=== PATIENT | female | born 1970 | race Caucasian/White ===

== ENCOUNTER 2019-05-16 01:33 | Day surgery (SDC) | payer BC, SELFPAY ==
[2019-05-12 14:46] VITALS: BMI 33.8
--- NOTE | 2019-05-14 14:56 | WPDANESEPP ---
Anes - Eval Pre Procedure Procedure: Operation Date: 05/16/19 09:00 Proposed Procedures p Esophagogastroduodenoscopy - Colin Canchola MD Date/Time: 05/14/19 14:56 Pre Op Diagnosis: Epigastric Pain Patient Data Age: 48 Gender: F Height: 5 ft 7 in Weight: 98 kg Allergies Allergy/AdvReac Type Severity Reaction Status Date / Time No Known Allergies Allergy Verified 05/12/19 14:44 Home Medications Medication Instructions Recorded Confirmed Type ibuprofen 200 mg PO Q6H PRN 05/12/19 05/12/19 History Patient hx anesthesia problems: none Family hx anesthesia problems: none PMFSH Past Medical History Medical History (Updated 05/14/19 @ 14:57 by Faviola Gonzalez CRNA) Epigastric pain Surgical History Surgical History (Updated 05/14/19 @ 14:56 by Faviola Gonzalez CRNA) H/O: hysterectomy Hx of cholecystectomy Hx of tonsillectomy Exam Day of Procedure 05/14/19 14:56
[2019-05-16 07:48] VITALS: BP 118/81; PULSE 76; RESP 16; TEMP 36.2; O2SAT 99
[2019-05-16] MEDS: LACTATED RINGERS 1,000 ML 150 ML IV CONT (07:55)
--- NOTE | 2019-05-16 08:47 | P.PNAN_ITS ---
Anes - Eval Final PreProcedure Day of Procedure 05/16/19 08:47 Patient weight: obese Heart: regular rate and rhythm Lungs: clear to auscultation Airway: Mallampati scale class II Neurological: alert and oriented Last oral intake: >/= 8 hours ASA classification: II Emergent: no Anesthetic plan: proceed Anesthesia type and monitoring: general GIVS and standard monitoring Informed Consent: The patient's anesthetic plan and its attendant risks and be nefits were discussed with the patient/family/POA. Questions were solicited and answers provided to the satisfaction of the patient/family/POA.
--- NOTE | 2019-05-16 09:12 | WPDGICN ---
Assessment and Plan Additional Plan This is a 48-year-old white female patient seen in evaluation at the request of Dr. Osmin Crockett. Patient states that in February 2019 she began to have upper abdominal pain. Pain is more in the left upper quadrant. She feels a bloating firm sensation in this area. Pain will worsen as the day progresses. It becomes worse on eating just about all foods. It is worse when sleeping . she states that her bowel habits are unchanged. She denies any bleeding. She denies any fever. She denies any weight loss. Past medical history is significant for cholecystectomy in 2017. She is status post total abdominal hysterectomy. Medications: Currently on no medications. She has no stated drug allergies. Family history noncontributory. Physical exam reveals her to be alert. Vital signs stable. HEENT exam unremarkable. Lungs are clear to auscultation and percussion. Heart is without murmur or extra sounds. Abdominal exam is obese. Bowel sounds are present soft she notices mild discomfort left upper quadrant. Digital external rectal exam normal. Laboratory tests reveal ultrasound April 20, 2019 consistent with hepatic steatosis. LFTs are normal. Hepatitis serologies are negative. Impression 1. epigastric pain. Etiology unclear. Pain appears to worsen with dietary intake. Suggesting dyspepsia. Plan is for a trial of proton pump inhibitor such as Prilosec. An EGD will be performed. \2. Hepatic steatosis. Appears to be related to obesity. Low-fat diet. Increase exercise, is encouraged. GI Consult Note Consult date/time: 05/16/19 09:12 HPI: Alexandra Ludwig Mensing is a 48 year old female [facility] Past Medical History Medical History (Updated 05/14/19 @ 14:57 by Faviola Gonzalez CRNA) Epigastric pain Surgical History Surgical History (Updated 05/14/19 @ 14:56 by Faviola Gonzalez CRNA) H/O: hysterectomy Hx of cholecystectomy Hx of tonsillectomy Meds Home Medications and Allergies Home Medications Medication Instructions Recorded Confirmed Type ibuprofen 200 mg PO Q6H PRN 05/12/19 05/12/19 History Allergies Allergy/AdvReac Type Severity Reaction Status Date / Time No Known Allergies Allergy Verified 05/12/19 14:44 Vital Signs Vital Signs - 24 hr 05/16/19 07:48 Temperature 36.2 C L Pulse Rate 76 Respiratory Rate 16 Blood Pressure 118/81 Pulse Oximetry 99
[2019-05-16] MEDS: BENZOCAINE (*SP) 60 ML SPRAY CAN (HURRICAINE) 1 SPRAY MUCOUS MEM (09:27)
[2019-05-16 09:35] VITALS: BP 115/82; PULSE 80; RESP 14; O2SAT 99
[2019-05-16 09:45] VITALS: BP 112/74; PULSE 62; RESP 15; O2SAT 100
[2019-05-16 09:55] VITALS: BP 128/80; PULSE 64; RESP 15; O2SAT 99
[2019-05-16 10:05] VITALS: BP 122/81; PULSE 63; RESP 18; O2SAT 100
== END 2019-05-16 10:20 | disposition home or self-care (01) ==
PROVIDERS: PCP Family Medicine; Visit Provider Internal Medicine Gastroenterology
PROC: 0DJ08ZZ Inspection of Upper Intestinal Tract, Via Natural or Artificial Opening Endoscopic (ICD-10-PCS; CPT 43235; principal; 2019-05-16 09:00)
DX: R10.13 Epigastric pain (principal); R10.12 Left upper quadrant pain; K76.0 Fatty (change of) liver, not elsewhere classified; E66.9 Obesity, unspecified; Z68.34 Body mass index [BMI] 34.0-34.9, adult
CPT/HCPCS: 43239; 87081; J2704; J7120

== ENCOUNTER → 2021-05-07 03:16 | Outpatient (CLI) | payer BC, SELFPAY ==
[2021-05-07 19:06] LABS: SARS-CoV-2 RNA PCR Positive
== END ==
PROVIDERS: PCP Family Medicine; Visit Provider Internal Medicine Gastroenterology
DX: U07.1 COVID-19 (principal); Z01.812 Encounter for preprocedural laboratory examination
CPT/HCPCS: C9803; U0003; U0005

== ENCOUNTER 2021-05-10 02:12 | Day surgery (SDC) | payer BC, SELFPAY ==
[2021-04-29 15:52] VITALS: BMI 37.3
--- NOTE | 2021-05-09 16:06 | P.PNAN_ITS ---
Anes - Eval Pre Procedure Procedure: Operation Date: 05/10/21 09:00 Proposed Procedures p Screening Colonoscopy - Colin Canchola MD Date/Time: 05/09/21 16:06 Pre Op Diagnosis: neoplasm screening Patient Data Age: 50 Gender: F Height: 1.68 m Weight: 105 kg Allergies Allergy/AdvReac Type Severity Reaction Status Date / Time No Known Allergies Allergy Verified 04/29/21 15:50 Home Medications Medication Instructions Recorded Confirmed Type ibuprofen 200 mg PO Q6H PRN 05/12/19 04/29/21 History pantoprazole 40 mg PO DAILY 04/29/21 04/29/21 History sucralfate 1 g PO QID 04/29/21 04/29/21 History Patient hx anesthesia problems: none Family hx anesthesia problems: none Results Review: All pre-operative results and documents have been reviewed as part of the pre-operative evaluation. [facility] Past Medical History Medical History (Updated 05/09/21 @ 16:06 by Britney Nelson CRNA) Epigastric pain Migraine Surgical History Surgical History H/O: hysterectomy Hx of cholecystectomy Hx of tonsillectomy Social History Social History Smoking status: Never smoker Alcohol intake: never Substance use: never Substance use type: does not use Spiritual care concerns: No Exam Day of Procedure 05/09/21 16:06
[2021-05-10 11:32] VITALS: BP 129/71; PULSE 82; RESP 16; TEMP 36.6; O2SAT 100
[2021-05-10 11:33] VITALS: BMI 37.1
[2021-05-10] MEDS: LACTATED RINGERS 1,000 ML 150 ML IV CONT (11:36)
--- NOTE | 2021-05-10 11:50 | WPDGICN ---
Assessment and Plan Assessment and plan (1) Encounter for screening colonoscopy: Code(s): Z12.11 - Encounter for screening for malignant neoplasm of colon Status: Acute Assessment and Plan: pt presents for neoplasia screening . she appears to be at average risk for colon polyps, further recomendations will be given after endoscopy. (2) Bloating: Code(s): R14.0 - Abdominal distension (gaseous) Status: Acute Assessment and Plan: nonspecific complaint, unremarkable EGD 2 years ago, will consider this at time of colonoscopy , consider US of RUQ if not yet obtained GI Consult Note Consult date/time: 05/10/21 11:50 HPI: Alexandra Ludwig Mensing is a 50 year old female presents for neoplasia screening. Pt reports abdominal bloating for several years, not related to eating nor with BM. There is no change with antacids, nor gas-x. her family hx is noncontributary, weight , appetite and bowel movements are normal. no bleeding, reported. Review of Systems Review of Systems: All systems reviewed & are unremarkable except as noted in HPI and below PMFSH Past Medical History Medical History (Updated 05/10/21 @ 11:54 by Colin Canchola MD) Epigastric pain Migraine Surgical History Surgical History H/O: hysterectomy Hx of cholecystectomy Hx of tonsillectomy Social History Social History Smoking status: Never smoker Alcohol intake: never Substance use: never Substance use type: does not use Living arrangements: with family Spiritual care concerns: No Meds Home Medications and Allergies Home Medications Medication Instructions Recorded Confirmed Type ibuprofen 200 mg PO Q6H PRN 05/12/19 04/29/21 History pantoprazole 40 mg PO DAILY 04/29/21 04/29/21 History sucralfate 1 g PO QID 04/29/21 04/29/21 History Allergies Allergy/AdvReac Type Severity Reaction Status Date / Time No Known Allergies Allergy Verified 04/29/21 15:50 Vital Signs Vital Signs - 24 hr 05/10/21 11:32 Temperature 97.8 F Pulse Rate 82 Respiratory Rate 16 Blood Pressure 129/71 Pulse Oximetry 100 Exam Narrative: On physical exam pt is alert, VSS, HEENT exam unremarkable, she is anicteric, lungs are clear, heart without murmur, Abdomen BS are present, soft, scaphoid, nontender, extremites without clubbing, cyanosis, nor edema, Digital rectal exam is normal.
[2021-05-10] MEDS: SIMETHICONE ORAL SUSPENSION 20 MG/0.3 ML 30 ML BOTTLE 0.6 ML IRRIGATION (12:16)
[2021-05-10 12:25] VITALS: BP 103/64; PULSE 80; RESP 16; O2SAT 100
[2021-05-10 12:35] VITALS: BP 119/79; PULSE 75; RESP 13; O2SAT 100
[2021-05-10 12:45] VITALS: BP 122/82; PULSE 76; RESP 17; O2SAT 100
== END 2021-05-10 12:54 | disposition home or self-care (01) ==
PROVIDERS: PCP Family Medicine; Visit Provider Internal Medicine Gastroenterology
PROC: 0DJD8ZZ Inspection of Lower Intestinal Tract, Via Natural or Artificial Opening Endoscopic (ICD-10-PCS; CPT 45378; principal; 2021-05-10 09:00)
DX: Z12.11 Encounter for screening for malignant neoplasm of colon (principal); R14.0 Abdominal distension (gaseous)
CPT/HCPCS: 45378; J2704; J7120

== ENCOUNTER 2022-05-09 17:12 | Emergency (ER) | payer BC, SELFPAY ==
--- NOTE | ~2022-05-09 | XR_ITS ---
EXAMINATION: XR chest 2V DATE: 05/09/2022 18:08 INDICATION: Chest pain. TECHNIQUE: Frontal and lateral views of the chest were obtained. COMPARISON: None. FINDINGS: There is mild atelectasis at left lung base. No pleural effusion or pneumothorax. The heart size is normal. Surgical clips in the right upper quadrant are likely from cholecystectomy. IMPRESSION: 1. Mild atelectasis at left lung base. Reviewed, dictated and finalized at location A. ENTER'S ASSISTANT
--- NOTE | ~2022-05-09 | CT_ITS ---
EXAMINATION: CTA chest PE protocol DATE: 05/09/2022 18:49 INDICATION: Shortness of breath. Chest pain. TECHNIQUE: Computed tomography angiography (CTA) of the chest was performed with 100 mL Omnipaque-350 intravenous contrast timed to evaluate the pulmonary arteries. Coronal maximum intensity projection 3D-reconstructions were created by the technologist. Automated exposure control and iterative reconst ruction technique were employed. The dose-length product was 655.80 mGy-cm. COMPARISON: None. FINDINGS: There is mild atelectasis bilaterally. No pleural effusion. The heart size is normal. No pe ricardial effusion. There is no pulmonary embolus. There are changes of cholecystectomy. There is a s mall sliding hiatal hernia. There is moderate thoracic spondylosis. IMPRESSION: 1. No pulmonary embolus. Sensitivity is mildly decreased by motion artifact. Reviewed, dictated and finalized at location A. N OILSEED OR PASTURE FARM WORKER
--- NOTE | 2022-05-09 17:13 | ECG_ITS ---
Measurements Intervals [place] Rate: 119 P: 11 CA: 158 QRS: 9 QRSD: 67 T: 25 QT: 287 QTc: 405 Interpretive Statements SINUS TACHYCARDIA LOW QRS VOLTAGE IN PRECORDIAL LEADS [QRS DEFLECTION < 1.0 mV IN CHEST LEADS] ABNORMAL ECG NO PREVIOUS ECG AVAILABLE FOR COMPARISON Electronically Signed On 05-10-2022 12:46:04 HVAC OPERATIONS TECHNICIAN by Faustino Marsh M.D.
[2022-05-09 17:15] VITALS: BP 122/83; PULSE 122; RESP 22; TEMP 38.1; O2SAT 99
[2022-05-09 17:32] LABS: Basophils Percent Auto 0.3 % (0.2-1.2); Eosinophils Percent Auto 0.2 % (0-4.4); Hematocrit 42.5 % (37.0-47.0); Hemoglobin 13.9 g/dL (12.0-15.0); Immature Granulocyte Absolute 0.02 K/mm3 (0.00-0.031); Immature Granulocyte Percent A 0.2 % (0-0.5); Lymphocytes Absolute Auto 1.05 K/mm3 (0.9-3.2); Lymphocytes Percent Auto 10.5 % (18.3-44.2); Mean Corpuscular HGB Conc 32.7 g/dl (32-36); Mean Corpuscular Hemoglobin 28.5 pg (26-34); Mean Corpuscular Volume 87.3 fl (80-100); Mean Platelet Volume 7.9 fl (7.4-10.4); Monocytes Absolute Auto 0.3 K/mm3 (0.1-0.6); Monocytes Percent Auto 3.4 % (2.6-8.5); Neutrophils Absolute Auto 8.5 K/mm3 (1.3-6.7); Neutrophils Percent Auto 85.4 % (45.5-73.1); Platelet Count Result 249 k/mm3 (150-375); Red Blood Count 4.87 M/mm3 (4.2-5.4); Red Cell Distribution Width 13.4 % (11.5-14.5)
[2022-05-09 17:49] LABS: Alanine Aminotransferase 30 U/L (6-35); Albumin Level 4.4 g/dL (3.5-5.1); Alkaline Phosphatase 161 U/L (38-126); Anion Gap 4 mmol/L (8-16); Aspartate Amino Transferase 30 U/L (14-36); Bilirubin,Total 0.5 mg/dL (0.2-1.3); Blood Urea Nitrogen 22 mg/dL (7-17); Carbon Dioxide 30 mmol/L (22-30); Chloride 104 mmol/L (98-107); Estimated CRCL calculation 77 ml/min; Estimated Glomerular Filt Rate > 60; Glucose 103 mg/dL (65-110); Lipase 80 U/L (23-300); Partial Thromboplastin Time 29.6 SECONDS (22.3-36.8); Potassium 4.4 mmol/L (3.4-5.0); Sodium 138 mmol/L (137-145)
--- NOTE | 2022-05-09 17:58 | ED.CHESTPAIN ---
HPI - Chest Pain General Chief Complaint: Chest Pain Stated Complaint: cp, fever/chills Time Seen by Provider: 05/09/22 17:43 History of Present Illness HPI narrative: Pt presents with intermittent chest pain and SOB off and on since March. Pt has been seen at [facility] ER and worked up and released. Pt has seen a certifier and has been scheduled for a stress test and echo. Pt says that she developed anterior CP radiating to jaw and arms and around to back since 11am today. Pt says she spiked a fever earlier today but denies URI, cough urinary symptoms. Related Data Home Medications Medication Instructions Recorded Confirmed ibuprofen 200 mg capsule 200 mg PO Q6H PRN Pain 05/12/19 04/29/21 pantoprazole 40 mg tablet,delayed 40 mg PO DAILY 04/29/21 04/29/21 release sucralfate 1 gram tablet 1 g PO QID 04/29/21 04/29/21 Allergies Allergy/AdvReac Type Severity Reaction Status Date / Time No Known Allergies Allergy Verified 04/29/21 15:50 Review of Systems Review of Systems: All systems reviewed & are unremarkable except as noted in HPI and below PMFSH Past Medical History Medical History (Updated 05/09/22 @ 19:23 by Vito Soto III, DO) Epigastric pain Migraine Surgical History Surgical History H/O: hysterectomy Hx of cholecystectomy Hx of tonsillectomy Social History Social History Smoking status: Never smoker Alcohol intake: never Substance use: never Substance use type: does not use Living arrangements: with family Spiritual care concerns: No Exam Const: General: healthy appearing Nutritional Appearance: well nourished Orientation/consciousness: patient oriented x3 Limitations: no limitations Neck: Neck: normal visual inspection Chest: Chest palpation & inspection: tenderness Other: tender upper chest to palpation and between shoulder blades Resp: Effort & Inspection: normal respiratory effort Auscultation: clear to auscultation bilaterally Cardio: Rate: regular rate Rhythm: regular rhythm GI: GI Palp: Yes Soft to palpation Auscultation: normal bowel sounds Skin: General skin exam: normal color Rashes: no rashes Wounds: no wounds Neuro: General: patient oriented x3, moves all extremities, no meningeal signs, no focal motor deficits and CN's II-XI intact bilaterally Cranial nerves: Yes Nystagmus not present Speech: normal speech Extrem: General: normal to inspection and no clubbing, cyanosis or edema Psych: Mental Status: mental status grossly normal Affect: normal affect Attitude: cooperative Course Vital Signs Vital signs: Vital Signs Temperature 100.6 F H 05/09/22 17:15 Pulse Rate 122 H 05/09/22 17:15 Respiratory Rate 22 H 05/09/22 17:15 Blood Pressure 122/83 05/09/22 17:15 Pulse Oximetry 99 05/09/22 17:15 Temperature 100.6 F H 05/09/22 17:15 Pulse Rate 100 05/09/22 20:27 Respiratory Rate 20 05/09/22 20:27 Blood Pressure 115/82 05/09/22 20:27 Pulse Oximetry 97 05/09/22 20:27 MDM - Chest Pain MDM Narrative Medical decision making narrative: Pt has had intermittent CP for a couple of months. Pt has had cardiac eval all neg so far. Pt has not had any treatment for any musculoskeltal type pain. Eplained to and pt that ths was not likely cardaic but would check labs and ekg to be safe and get CT of chest to make sure it want a PE or anything in her lungs but if all this was negative than would have to follow up with PCP to do testing to find a cause of her pain. labs and CT neg here and felt better after fentany. d/c on naprosy and flexeril for outpatient follow up. Lab Data 05/09/22 17:27 05/09/22 17:27 Labs: Lab Results 05/09/22 05/09/22 05/09/22 Range/Units 17:27 17:27 17:27 WBC 10.0 (4.5-10.0) K/mm3 RBC 4.87 (4.2-5.4) M/mm3 Hgb 13.9 (12.0-15.0) g/dL Hct 42.5 (37.0-47.0) %
[2022-05-09 18:00] LABS: Troponin I < 0.012 ng/mL (0.000-0.034)
[2022-05-09] MEDS: fentaNYL CITRATE INJ (*CRX) 100 MCG/2 ML VIAL 50 MCG IV PUSH (19:05)
[2022-05-09 20:27] VITALS: BP 115/82; PULSE 100; RESP 20; O2SAT 97
== END 2022-05-09 20:27 | disposition home or self-care (01) ==
PROVIDERS: Emergency Provider Emergency Medicine; PCP Family Medicine
DX: R07.89 Other chest pain (principal); Z90.710 Acquired absence of both cervix and uterus; R00.0 Tachycardia, unspecified
CPT/HCPCS: 36415; 71046; 71275; 80053; 83690; 84484; 85025; 85610; 85730; 93005; 96374; 99284; J3010; Q9967

== ENCOUNTER 2023-02-16 11:42 | Outpatient (CLI) | payer BC, SELFPAY ==
--- NOTE | ~2023-02-16 | XR_ITS ---
Supine and upright views of the abdomen Clinical history: Abdominal distention Findings: Bowel gas pattern is nonspecific. No evidence for obstruction or free air. No abnormal mass lesion or calcification is seen. Cholecystectomy clips noted. Osseous structures are intact. Impression: No significant abnormality is seen. Reviewed, dictated and finalized at [facility]. ING DEPARTMENT SUPERVISOR Impression: No significant abnormality is seen.
[2023-02-16 12:35] LABS: Hematocrit 44.1 % (37.0-47.0); Hemoglobin 13.9 g/dL (12.0-15.0); Mean Corpuscular HGB Conc 31.5 g/dl (32-36); Mean Corpuscular Hemoglobin 28.1 pg (26-34); Mean Corpuscular Volume 89.1 fl (80-100); Mean Platelet Volume 8.4 fl (7.4-10.4); Platelet Count Result 292 k/mm3 (150-375); Red Blood Count 4.95 M/mm3 (4.2-5.4); Red Cell Distribution Width 13.2 % (11.5-14.5); White Blood Count 7.1 K/mm3 (4.5-10.0)
[2023-02-16 12:49] LABS: Alanine Aminotransferase 34 U/L (6-35); Albumin Level 4.6 g/dL (3.5-5.1); Alkaline Phosphatase 116 U/L (38-126); Anion Gap 12 mmol/L (8-16); Aspartate Amino Transferase 28 U/L (14-36); Bilirubin,Total 0.6 mg/dL (0.2-1.3); Blood Urea Nitrogen 24 mg/dL (7-17); CRP 1.1 mg/dL (<1.0); Calcium 9.8 mg/dL (8.4-10.2); Carbon Dioxide 28 mmol/L (22-30); Chloride 101 mmol/L (98-107); Estimated Glomerular Filt Rate > 60; Glucose 83 mg/dL (65-110); Potassium 4.5 mmol/L (3.4-5.0); Sodium 141 mmol/L (137-145)
[2023-02-16 13:08] LABS: Erythrocyte Sedimentation Rate 13 mm/hr (0-20)
[2023-02-16 13:20] LABS: Thyroid Stimulating Hormone Reflex 0.018 uIU/mL (0.465-4.68)
[2023-02-16 14:12] LABS: Free T4 Free Thyroxine Reflex 0.85 ng/dL (0.78-2.19)
[2023-02-16 16:17] LABS: Total Triiodothyronine (T3) 1.55 NG/ML (0.97-1.69)
[2023-02-19 20:23] LABS: Immunoglobulin A 142 mg/dL (47-310); TTG IGA AB <1.0 U/mL (<15.0)
== END 2023-02-16 11:43 | disposition home or self-care (01) ==
LOC: ANHLAB 11:44
PROVIDERS: PCP Family Medicine; Visit Provider Nurse Practitioner
DX: R14.0 Abdominal distension (gaseous) (principal); R68.81 Early satiety; R14.2 Eructation
CPT/HCPCS: 36415; 74018; 80053; 82784; 84439; 84443; 84480; 85027; 85652; 86003; 86140; 86364

== ENCOUNTER 2023-03-10 07:14 | Outpatient (CLI) | payer BC, SELFPAY ==
--- NOTE | ~2023-03-10 | NM_ITS ---
EXAM: NM gastric emptying study DATE: 03/10/2023 11:49 INDICATION: Early satiety TECHNIQUE: A gastric emptying study was performed using the methodology of Marjorie IRENE, et al. J Nucl Med 2007; 48:568-572. The patient was given a meal consisting of 2 scrambled eggs labeled with 1.049 mCi Tc-99m sulfur colloid, 2 slices of toast, two packages of jam, and approximately 120 mL of water . Simultaneous anterior and posterior 1-min images of the abdomen were obtained with the patient supi ne at multiple time points over a total period of 4 hours. The geometric mean of anterior and posteri or views was determined, and the percentage retention was calculated for each time point. COMPARISON: None. FINDINGS: Gastric retention of the radiotracer-labeled meal was 45%, 19%, and 4% at the 1-hour, 2-hour, and 4-h our time points, respectively. With this technique, apparent rapid gastric emptying is suggested by < 30% gastric retention at 1 hour. Delayed gastric emptying is defined by gastric retention of >90% at 1 hour, >60% retention at 2 hours, or >10% retention at 4 hours. IMPRESSION: 1. Normal gastric emptying. Reviewed, dictated and finalized at location A. ODITIES CLERK IMPRESSION: 1. Normal gastric emptying.
== END 2023-03-10 07:15 | disposition home or self-care (01) ==
PROVIDERS: PCP Family Medicine; Visit Provider Nurse Practitioner
DX: R14.0 Abdominal distension (gaseous) (principal); R68.81 Early satiety
CPT/HCPCS: 78264; A9541

== ENCOUNTER 2023-03-20 09:13 | Outpatient (CLI) | payer BC, SELFPAY ==
[2023-03-20 09:24] LABS: Basophils Absolute Auto 0.03 K/mm3 (0.00-0.10); Basophils Percent Auto 0.6 % (0.0-1.0); Eosinophils Absolute Auto 0.09 K/mm3 (0.02-0.50); Eosinophils Percent Auto 1.7 % (1.0-6.0); Hematocrit 43.9 % (35.0-49.0); Hemoglobin 14.1 g/dL (12.0-15.0); Immature Granulocyte Absolute 0.01 K/mm3 (0.00-0.00); Immature Granulocyte Percent A 0.2 % (0.0-0.0); Lymphocytes Absolute Auto 1.88 K/mm3 (1.10-4.50); Lymphocytes Percent Auto 35.3 % (18.0-42.0); Mean Corpuscular HGB Conc 32.1 g/dL (32.0-36.0); Mean Corpuscular Hemoglobin 28.2 pg (27.0-31.0); Mean Corpuscular Volume 87.8 fL (78.0-102.0); Mean Platelet Volume 8.3 fl (9.2-11.8); Monocytes Absolute Auto 0.29 K/mm3 (0.10-0.90); Monocytes Percent Auto 5.4 % (2.0-11.0); Neutrophils Percent Auto 56.8 % (50.0-70.0); Platelet Count Result 287 K/mm3 (150-420); Red Cell Distribution Width 13.2 % (11.6-14.4); White Blood Count 5.3 K/mm3 (4.8-10.8)
[2023-03-20 09:47] LABS: Alanine Aminotransferase 42 U/L (14-59); Albumin Level 4.1 g/dL (3.4-5.0); Alkaline Phosphatase 144 U/L (46-116); Anion Gap 6 mmol/L (8-16); Aspartate Amino Transferase 23 U/L (15-37); Bilirubin,Total 0.5 mg/dL (0.00-1.00); Blood Urea Nitrogen 21 mg/dL (7-18); Calcium 9.6 mg/dL (8.5-10.1); Carbon Dioxide 32 mmol/L (21-32); Chloride 101 mmol/L (98-108); Cholesterol 197 mg/dL (0-200); Estimated Glomerular Filt Rate 50; Glucose 92 mg/dL (70-99); HDL Direct 53 mg/dL (40-60); LDL Cholesterol Calculated 113 mg/dL (<130); Osmolality Calculated 291 mOsm/kg (285-295); Potassium 4.6 mmol/L (3.5-5.1); Sodium 139 mmol/L (136-145); Total Protein 7.6 g/dL (6.4-8.2); Triglycerides 157 mg/dL (0-150)
[2023-03-21 07:40] LABS: Thyroid Stimulating Hormone Reflex 0.67 u/IU/mL (0.36-3.74)
== END 2023-03-20 09:14 | disposition home or self-care (01) ==
LOC: CHSLAB 09:15
PROVIDERS: PCP Family Medicine; Visit Provider Family Medicine
DX: Z00.00 Encounter for general adult medical examination without abnormal findings (principal)
CPT/HCPCS: 36415; 80053; 80061; 84443; 85025

== ENCOUNTER 2023-05-22 11:32 | Outpatient (CLI) | payer BC, SELFPAY ==
--- NOTE | ~2023-05-22 | MM_ITS ---
EXAMINATION: MM screening marilee BI w gaby HISTORY: Screening mammogram TECHNIQUE: Craniocaudal and mediolateral oblique 3-D tomosynthesis images were obtained and synthetic 2-D images were generated. CAD analysis was submitted and interpreted. COMPARISON: No prior mammogram is available for comparison at this institution. BREAST PARENCHYMAL COMPOSITION: The breasts are almost entirely fatty. FINDINGS: No suspicious mass, calcification, or architectural distortion are identified in either mike ast to suggest malignancy. IMPRESSION: 1. No mammographic evidence of malignancy. 2. Recommend routine screening mammography in one year. BI-RADS Category 1: Negative Reviewed, dictated and finalized at location A. E FINISHER
== END 2023-05-22 11:33 | disposition home or self-care (01) ==
LOC: CHSIMG 11:34
PROVIDERS: PCP Family Medicine; Visit Provider Family Medicine
DX: Z12.31 Encounter for screening mammogram for malignant neoplasm of breast (principal)
CPT/HCPCS: 77063; 77067

== ENCOUNTER 2023-06-03 09:13 | Outpatient (CLI) | payer BC, SELFPAY ==
--- NOTE | ~2023-06-03 | XR_ITS ---
EXAMINATION: XR chest 2V DATE: 06/03/2023 09:53 INDICATION: 3 days of cough and fatigue TECHNIQUE: PA and lateral views of the chest were obtained. COMPARISON: Chest radiograph and CT dated 05/09/2022 FINDINGS: The lungs remain clear with no focal airspace opacities, pulmonary edema, pleural effusion or pneumot horax. The cardiomediastinal silhouette is normal. Post cystectomy clips in right upper quadrant. Mod erate thoracic spondylosis IMPRESSION: 1. No acute cardiopulmonary disease. Reviewed, dictated and finalized at location B. OFFICER ASSISTANT
[2023-06-03 09:52] LABS: Strep Group A RT-PCR DETECTED (Negative)
[2023-06-03 10:03] LABS: SARS-CoV-2 RNA PCR Negative (Negative)
[2023-06-03 10:04] LABS: Influenza B QL RT-PCR Negative (Negative)
[2023-06-03 10:05] LABS: Influenza A QL RT-PCR Negative (Negative); RSV RNA, RT-PCR Negative (Negative)
== END 2023-06-03 09:14 | disposition home or self-care (01) ==
PROVIDERS: PCP Family Medicine; Visit Provider Family Medicine
DX: R05.9 Cough, unspecified (principal); Z20.822 Contact with and (suspected) exposure to COVID-19
CPT/HCPCS: 71046; 87637; 87651

== ENCOUNTER 2024-08-12 00:34 | Day surgery (SDC) | payer BC, SELFPAY ==
[2024-08-03 14:28] VITALS: BMI 33.0
--- OUTSIDE RECORDS SUMMARY | 2024-08-12 00:37 | XMS_ITS | Encounter Summary ---
Author Organization [facility] Care Team Providers Care Deputy Commonwealth'S Attorney Name Role Phone Osmin Crockett MD Primary Care Provider [phone] Osmar Galeano Primary Care Provider [phone] Encounter Details Date Type Department Care Team (Latest Contact Info) Description 09/12/2016 Orders Only [facility] CLINCONV ProviderDemario MD [address] [place] [id number] Social History Tobacco Use Types Packs/Day Years Used Date Smoking Tobacco: Never Assessed Comments Unknown Sex and Gender Information Value Date Recorded Sex Assigned at Not on file Legal Sex 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 Historical Provider Final Res ult * PROCEDURE - RESULT (09/24/2016 12:00 AM CDT) Narrative 09/24/2016 12:00 AM CDT Ordered by an unspecified provider. us Historical Provider Final Res ult documented in this encounter Visit Diagnoses Not on filedocumented in this encounter Care Teams Deputy Commonwealth'S Attorney Relationship Specialty Start Date End Date Osmin Crockett MD PCP - General Family Medicine 08/11/18 12/31/21 Osmar Galeano PA PCP - General Family Medicine 01/01/22 documented as of this encounter
--- OUTSIDE RECORDS SUMMARY | 2024-08-12 00:37 | XMS_ITS | Encounter Summary ---
Author Organization [facility] Facility Care Team Providers Care Pull Over Name Role Phone Osmin Crockett MD Primary Care Provider [phone] Osmar Galeano Primary Care Provider [phone] Encounter Details Date Type Department Care Team (Latest Contact Info) Description 08/21/2016 Orders Only [facility]G CLINCONV ProviderDemario MD [address] [place] [id number] Social History Tobacco Use Types Packs/Day Years Used Date Smoking Tobacco: Never Assessed Comments Unknown Sex and Gender Information Value Date Recorded Sex Assigned at Not on file Legal 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 Historical Provider Final Res ult documented in this encounter Visit Diagnoses Not on filedocumented in this encounter Care Teams Pull Over Relationship Specialty Start Date End Date Osmin Crockett MD PCP - General Family Medicine 08/11/18 12/31/21 Osmar Galeano PA PCP - General Family Medicine 01/01/22 documented as of this encounter
--- OUTSIDE RECORDS SUMMARY | 2024-08-12 00:37 | XMS_ITS | Clinical Summary ---
Author Organization [facility] Address [address] [place] [address] Care Team Providers Care Telemetry Monitor Name Role Phone Unavailable Primary Care Provider Unavailabl e Social History Tobacco Use Types Packs/Day Years Used Date Smoking Tobacco: Never Assessed Comments Unknown Sex and Gender Information Value Date Recorded Sex Assigned at Not on file Legal Sex Female 10:43 AM CDT Gender Identity Not on file Sexual Orientation Not on file Plan of Treatment Health Maintenance Due Date Last Done Comments Hepatitis C Virus (HCV) Screening 1969 Hepatitis B Immunization (1 of 3 - 19+ 3-dose series) 1988 Pap Smear 1990 Cervical Cancer Screening (CCS) 11/29/1999 HPV/Cotest 11/29/1999 Colonoscopy 2014 Colorectal Cancer Screening 2014 Cologuard 11/29/2019 Immunochemical Fecal Occult Blood 11/29/2019 Mammogram 11/29/2019 Pneumococcal Immunization (5 0+ years) (1 of 1 - PCV) 11/29/2019 Zoster Immunization (1 of 2) 11/29/2019 Influenza Immunization (#1) 2023 02/22/2019 SARS-COV-2 Immunization ( - 2023- season) 2023 Respiratory Syncytial Virus (RSV) Immunization (Adult) (1 - 1-dose 75+ series) 2044 DTaP/Tdap/Td Immunization Discontinued 07/11/2016 TdaP Immunization Completed 07/11/2016 Meningococcal Immunization (ACWY) Aged Out No longer eligible based on patient's age to complete this topic Pneumococcal Immunization Combined Aged Out No longer eligible based on patient's age to complete this topic Rotavirus Immunization Aged Out No lo nger eligible based on patient's age to complete this topic
--- OUTSIDE RECORDS SUMMARY | 2024-08-12 00:37 | XMS_ITS | Encounter Summary ---
Author Organization 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 Historical Provider Final Res ult documented in this encounter Visit Diagnoses Not on filedocumented in this encounter Care Teams Quality Process Auditor Relationship Specialty Start Date End Date Osmin Crockett MD PCP - General Family Medicine 08/11/18 12/31/21 Osmar Galeano PA PCP - General Family Medicine 01/01/22 documented as of this encounter
--- OUTSIDE RECORDS SUMMARY | 2024-08-12 00:37 | XMS_ITS | Referral Summary ---
Author Organization [facility] [place] [facility] [facility] Address [address] [place] [address] Care Team Providers Care Chemical Inspector Name Role Phone Osmar Galeano Primary Care Provider [phone] Encounters Date Type Department Care Team Description 06/19/2024 4:31 PM CDT - 06/19/2024 8:01 PM CDT Emergency [facility] Emergency Department [address] [place] [address] Silvia Painter MD Chronic abdominal pain (Primary Dx) Discharge Disposition: Discharge to home or self care from Last 3 Months Allergies No known active allergies Medications fluticasone propionate (FLONASE) 50 mcg/actuation nasal spray SHAKE LQ AND U 2 SPRAYS IEN QD PRN 0 9 Active IBU 800 mg tablet Take 1 tablet by mouth 3 (three) times a day 0 9 Active carisoprodol (SOMA) 350 mg tabletIndication s:Muscle Spasm Take 1 tablet (350 mg total) by mouth nightly 14 tablet 9 Active Additional Information Patient not taking.Reported on 07/28/2019 HYDROcodone-acet aminophen (NORCO) 5-325 mg per tablet TK 1 T PO Q 6 H PRN P 0 9 Active dicyclomine (BENTYL) 10 mg capsuleIndicatio ns:Diarrhea, unspecified type Take 2 capsules (20 mg total) by mouth 2 (two) times a day as needed (abdominal pain or cramps) 15 capsule 9 Active Additional Information Patient not taking.Reported on 07/28/2019 Saccharomyces boulardii (FLORASTOR) 250 mg capsuleIndicatio ns:Acute gastritis without hemorrhage, unspecified gastritis type Take 1 capsule (250 mg total) by mouth 2 (two) times a day 60 capsule 1 0 Active Additional Information Patient not taking.Reported on 07/28/2019 ALPRAZolam (XANAX) 0.5 mg tabletIndication s:Anxiety Take 1 tablet (0.5 mg total) by mouth 2 (two) times a day as needed for anxiety 30 tablet 0 Active Additional Information Patient not taking.Reported on 2019 SUMAtriptan (IMITREX) 100 mg tablet Take 1 tablet (100 mg total) by mouth once as needed for migraine for up to 1 dose 9 tablet 1 Active sucralfate (CARAFATE) 1 gram tabletIndication s:Gastroesophage al reflux disease without esophagitis Take 1 tablet (1 g total) by mouth 4 (four) times a day (with meals and nightly) 120 [address] (PROTONIX) 40 mg EC tabletIndication s:Gastroesophage al reflux disease without esophagitis Take 1 tablet (40 mg total) by mouth daily 30 tablet 1 2 Active albuterol HFA (PROVENTIL HFA,VENTOLIN HFA,PROAIR HFA) 90 mcg/actuation inhalerIndicatio ns:Wheezing Inhale 2 puffs every 6 (six) hours as needed for wheezing 1 each 2 Active Active Problems Problem Noted Date Diagnosed Date Chest pain 05/28/2022 Anxiety 07/28/2019 Assessment & Plan (07/28/2019 4:00 PM CDT): Start xanax 0.5mg Hepatic steatosis 05/02/2019 Assessment & Plan (05/02/2019 4:06 PM ASSOCIATE FACULTY): Discussed with patient paitent education provided S/P cholecystectomy 10/20/2016 GERD (gastroesophageal reflux disease) 6 Assessment & Plan (04/12/2021 11:21 AM ASSOCIATE FACULTY): Chronic condition with acute exacerbation concern for ulcer Start Carafate 1 g Q a.c. and HS for 30 days Start Protonix 40 mg q.d. Assessment & Plan (07/28/2019 4:06 PM CDT): Well controlled on current regimen, no rx changes needed. Continue lifestyle modifications Migraine headache 07/23/2015 Immunizations Immunization Administration Dates Next Due Influenza, Quadrivalent, Spl it, Preservative Free, Intramuscular 02/22/2019 MMR 08/08/2016,07/11/2016 Tdap 07/11/2016 Social History Tobacco Use Types Packs/Day Years Used Date Smoking Tobacco: Never Smokeless Tobacco: Never Tobacco Cessation:Counseling Given: Not Answered Alcohol Use Standard Drinks/Week Comments Yes 0 (1 standard drink = 0.6 oz pur e alcohol) 1-3 drinks on ocassion AUDIT-C Answer Date Recorded Q1: How often do you have a drink containing alc ohol? Monthly or less 04/12/2021 Average Number of Drinks Not on file 022 Q3: How often do you have si x or more drinks on one occasion? Less than monthly 04/12/2021 PHQ-2 Answer Date Recorded PHQ-2 Score 0 11/25/2018 Personal Safety Answer Date Recorded Have you ever been in or are you currently in a harmful physical or emotional relationship or is someone making you feel afraid or unsafe? Denies 06/19/2024 Comments Unknown Sex and Gender Information Value Date Recorded Sex Assigned at Not on file Legal Sex Female 6:19 AM ASSOCIATE FACULTY Gender Identity Female 05/21/2022 9:21 AM ASSOCIATE FACULTY Sexual Orientation Not on file Last Filed Vital Signs Vital Sign Reading Time Taken Comments Blood Pressure 133/78 06/19/2024 8:00 PM CDT Pulse 64 06/19/2024 8:00 PM CDT Temperature 37 C (98.6 F) 06/19/2024 4:21 PM CDT Respiratory Rate 15 06/19/2024 4:21 PM CDT Oxygen Saturation 100% 06/19/2024 8:00 PM CDT Inhaled Oxygen Concentration - - Weight 95.3 kg (210 lb) 06/19/2024 2:21 PM CDT Height 167.6 cm (5' 6 ) 06/19/2024 2:21 PM CDT Body Mass Index 33.89 06/19/2024 2:21 PM CDT Plan of Treatment Not on file Procedures Procedure Name Priority Date/Time Associated Diagnosis Comments CT ABDOMEN PELVIS W CONTRAST ED 06/19/2024 6:36 PM CDT URINALYSIS AND REFLEX TO MICROSCOPIC STAT 06/19/2024 3:53 PM CDT POCT HCG, URINE Routine 06/19/2024 3:51 PM CDT EGFR STAT 06/19/2024 3:50 PM CDT DIFFERENTIAL AUTO STAT 06/19/2024 3:5 0 PM CDT LIPASE STAT 06/19/2024 3:50 PM CDT COMPREHENSIVE METABOLIC PANEL STAT 06/19/2024 3:50 PM CDT CBC WITH AUTO DIFFERENTIAL STAT 06/19/2024 3:50 PM CDT ECG 12-LEAD STAT 06/19/2024 2:46 PM CDT HEPATITIS PANEL, ACUTE Routine 0 5:25 PM ASSOCIATE FACULTY Acute gastritis without hemorrhage, unspecified gastritis type Elevated alkaline phosphatase level RUQ abdominal pain SCREENING MAMMOGRAM Routine 02/17/2014 4 :46 PM ASSOCIATE FACULTY from Last 3 Months or Most Recently Relevant to Health Maintenance Results * CT Abdomen Pelvis W Contrast (06/19/2024 6:36 PM CDT) Anatomical Region Laterality Modality Body N/A Computed Tomogra phy 06/19/2024 7:11 PM CDT Impressions 06/19/2024 8:27 PM CDT Mild edema of the distal esophagus which can be seen in esophagitis. Otherwise, no acute findings in the abdomen or pelvis. Dictated by: Marcelo Villar MD The radiology attending physician has personally reviewed this study, and had reviewed and/or edited this written report and agrees with it. Electronically signed by: Shiv Talavera M.D. Narrative 06/19/2024 8:27 PM CDT EXAMINATION: Computed tomography of the abdomen and pelvis with intravenous contrast HISTORY: Abdominal pain TECHNIQUE: Transaxial computed tomographic images of the abdomen and pelvis were obtained with intravenous contrast according to the standard protocol after the uneventful administration of 94 mL Opti-Ray 350 intravenous contrast. COMPARISON: 07/28/2017 FINDINGS: Partially imaged lower thorax is unremarkable. Mild edema of the distal esophagus which can be seen in esophagitis. Hepatic steatosis. Cholecystectomy. The spleen, pancreas, adrenal glands are normal. Kidneys enhance symmetrically. No hydronephrosis. Urinary bladder is normal. Hysterectomy. No bowel obstruction. Appendix is normal. No ascites or pneumoperitoneum. No abdominal or pelvic lymphadenopathy. Abdominal aorta is normal in caliber. No suspicious osseous lesion. Procedure Note Shiv Talavera MD - 06/19/2024 EXAMINATION: Computed tomography of the abdomen and pelvis with intravenous contrast HISTORY: Abdominal pain TECHNIQUE: Transaxial computed tomographic images of the abdomen and pelvis were obtained with intravenous contrast according to the standard protocol after the uneventful administration of 94 mL Opti-Ray 350 intravenous contrast. COMPARISON: 07/28/2017 FINDINGS: Partially imaged lower thorax is unremarkable. Mild edema of the distal esophagus which can be seen in esophagitis. Hepatic steatosis. Cholecystectomy. The spleen, pancreas, adrenal glands are normal. Kidneys enhance symmetrically. No hydronephrosis. Urinary bladder is normal. Hysterectomy. No bowel obstruction. Appendix is normal. No ascites or pneumoperitoneum. No abdominal or pelvic lymphadenopathy. Abdominal aorta is normal in caliber. No suspicious osseous lesion. IMPRESSION: Mild edema of the distal esophagus which can be seen in esophagitis. Otherwise, no acute findings in the abdomen or pelvis. Dictated by: Marcelo Villar MD The radiology attending physician has personally reviewed this study, and had reviewed and/or edited this written report and agrees with it. Electronically signed by: Shiv Talavera M.D. Devendra Sampson MD IMG CT PROCEDURES Final Re sult * (ABNORMAL) Urinalysis reflex to microscopic (06/19/2024 3:53 PM CDT) Color, ur Yellow Yellow Clarity, ur Clear Clear [facility] Specific gravity, ur 1.031(H) 1.003 - 1.030 [facility] pH, urine 6.0 [facility] Comment: Interpretive Data U rine pH is affected by diet, medications, systemic acid-base disturbances, and renal tubular function. pH may affect urinary stone formation. For example, urine pH below 6.0 may help reduce the tendency for calcium phosphate stones and pH greater than 6.0 may reduce the tendency for uric acid stone formation. Source: [facility] [email or web address] Current Interpretive Data was last revised on 2017 Protein, ur ql Trace Negative [facility] Glucose, ur ql Negative Negative [facility] Ketones, ur Negative Negative [facility] Bilirubin, ur Negative Negative [facility] Blood, ur Negative Negative [facility] Urobilinogen, ur 2.0(A) <2.0 mg/dL [facility] Nitrite, ur Negative Negative [facility] Leukocyte esterase, ur Negative Negative [facility] UA reflex comment Reflex conditions for microscopic UA not met. [facility] Urine 06/19/2024 3:53 PM CDT 06/19/2024 4:08 PM CDT us Silvia Painter MD LAB URINE ORDERABLES Fin al Result [facility] Department [place] [address] * POCT hCG, urine (06/19/2024 3:51 PM CDT) HCG, ur, POC Negative Negative Lot Number [id number] QC Backgroud Clear Acceptable QC Control Line Acceptable Urine 06/19/2024 3:51 PM CDT Silvia Painter MD POINT OF CARE TEST ORDER BERTIN Final Result * eGFR (06/19/2024 3:50 PM CDT) Pathologist [facility] eGFR 66 >=60 mL/min/1. 73 m2 Comment: Interpretive Data Reference Interval Normal >/= 90 mL/min/1.73m2 Mildly decreased* 60 - 89 mL/min/1.73m2 Mildly to moderately decreased 45 - 59 mL/min/1.73m2 Moderately to severely decreased 30 - 44 mL/min/1.73m2 Severely decreased 15 - 29 mL/min/1.73m2 Kidney Failure < 15 mL/min/1.73m2 *Relative to young adult level Estimated glomerular filtration rate is determined by the 2020 CKD-EPI equation recommended by the National Kidney Foundation (A Unifying Approach to GFR Estimation: Recommendations of the NKF-ASK Task Force on Reassessing the Inclusion of Race in Diagnosing Kidney Disease, JASN 2020). The CKD-EPI equation should not be used for patients with unstable renal function and has not been validated in children and those over 70. Current interpretive data was last reviewed 2021. Blood 06/19/2024 3:50 PM CDT 06/19/2024 3:58 PM CDT us Silvia Painter MD LAB BLOOD ORDERABLES Fin al Result [facility] Department [place] [address] * Differential, auto (06/19/2024 3:50 PM CDT) Pathologist [facility] Neutrophil abs 3.3 1.5 - 6.5 K/cumm Imm gran abs 0.0 0.0 - 0.1 K/cumm [facility] Lymphocyte abs 2.2 0.8 - 3.3 K/cumm [facility] Monocyte abs 0.3 0.2 - 0.8 K/cumm [facility] Eosinophil abs 0.1 0.0 - 0.5 K/cumm [facility] Basophil abs 0.0 0.0 - 0.1 K/cumm [facility] Neutrophil pct 56.2 % [facility] Comment: Interpretive Data Percent cell count reference ranges are not reported, since discordance with absolute values may lead to misinterpretation of CBC data. Current Interpretive Data was last revised on 2017. Imm gran pct 0.3 % [facility] [place] [place] Comment: Interpretive Data Percent cell count reference ranges are not reported, since discordance with absolute values may lead to misinterpretation of CBC data. Current Interpretive Data was last revised on 2017. Lymphocyte pct 36.3 % [facility] [place] Comment: Interpretive Data Percent cell count reference ranges are not reported, since discordance with absolute values may lead to misinterpretation of CBC data. Current Interpretive Data was last revised on 2017. Monocyte pct 5.2 % [facility] [place] Comment: Interpretive Data Percent cell count reference ranges are not reported, since discordance with absolute values may lead to misinterpretation of CBC data. Current Interpretive Data was last revised on 2017. Eosinophil pct 1.5 % [facility] [place] Comment: Interpretive Data Percent cell count reference ranges are not reported, since discordance with absolute values may lead to misinterpretation of CBC data. Current Interpretive Data was last revised on 2017. Basophil pct 0.5 % [facility] [place] Comment: Interpretive Data Percent cell count reference ranges are not reported, since discordance with absolute values may lead to misinterpretation of CBC data. Current Interpretive Data was last revised on 2017. Blood 06/19/2024 3:50 PM CDT 06/19/2024 3:58 PM CDT us Silvia Painter MD LAB BLOOD ORDERABLES Fin al Result [facility] Department of Laboratories [place], [place] [id number] * (ABNORMAL) CBC with auto differential (06/19/2024 3:50 PM CDT) WBC 5.9 3.8 - 9.9 K/cumm Hgb 13.5 11.9 - 15.5 g/dL [facility] Hct 41.0 35.6 - 45.5 % [facility] Plt 248 150 - 400 K/cumm [facility] MPV 8.5(L) 9.1 - 12.3 fL [facility] RBC 4.70 3.90 - 5.20 M/cumm [facility] MCV 87.2 81.3 - 96.4 fL [facility] MCH 28.7 27.1 - 33.3 pg [facility] MCHC 32.9 32.3 - 35.7 g/dL [facility] RDW CV 13.2 11.1 - 14.9 % [facility] RDW SD 41.2 35.7 - 48.1 fL [facility] NRBC abs 0.00 0.00 - 0.01 K/cumm [facility] Blood Venous blood specimen / Unknown 06/19/2024 3:50 PM CDT 06/19/2024 3:58 PM CDT Silvia Painter MD LAB BLOOD ORDERABLES Fin al Result Performing Organization Address City/[facility]/ZIP Co de Phone Number [facility] Department [place] [address] * Lipase (06/19/2024 3:50 PM CDT) [facility] Lipase 31 10 - 99 Units/L Blood Venous blood specimen / Unknown 06/19/2024 3:50 PM CDT 06/19/2024 3:58 PM CDT Silvia Painter MD LAB BLOOD ORDERABLES Fin al Result [facility] Department [place] [address] * Comprehensive metabolic panel (06/19/2024 3:50 PM CDT) [facility] Sodium 142 135 - 145 mmol/L Potassium, pl 4.3 3.3 - 4.9 mmol/L [facility] Chloride 106 97 - 110 mmol/L [facility] CO2 28 22 - 32 mmol/L [facility] Anion gap 8 2 - 15 mmol/L [facility] BUN 18 6 - 25 mg/dL [facility] Creatinine 1.01 0.60 - 1.10 mg/dL [facility] Glucose 88 70 - 199 mg/dL [facility] Comment: Interpretive Data Fasting glucose >/= 126 mg/dl is diagnostic for diabetes. Fasting is defined as no caloric intake for at least 8 hours. Fasting glucose between 100 mg/dl to 125 mg/dl is diagnostic of prediabetes. In a patient with classic symptoms of hyperglycemia or hyperglycemic crisis, a random glucose >/= 200 mg/dl is diagnostic for diabetes. In the absence of unequivocal hyperglycemia, results should be confirmed by repeat testing. The classification and Diagnosis of Diabetes Diabetes Care 202; 46: S19-S40. Current interpretive data was last revised 2022. Calcium 9.4 8.5 - 10.3 mg/dL [facility] Bilirubin, total 0.3 0.1 - 1.2 mg/dL [facility] Protein, pl 7.4 6.5 - 8.5 g/dL [facility] Albumin 4.2 3.5 - 5.0 g/dL [facility] Alk phos 128 40 - 130 Units/L [facility] ALT 23 7 - 45 Units/L [facility] AST 22 10 - 45 Units/L [facility] Blood 06/19/2024 3:50 PM CDT 06/19/2024 3:58 PM CDT Silvia Painter MD LAB BLOOD ORDERABLES Fin al Result [facility] Department [place] [address] * ECG 12-LEAD (06/19/2024 2:46 PM CDT) Narrative [facility] - 06/19/2024 2:46 PM CDT Carrie Rod MD 06/19/2024 2:47 PM ECG 12 lead Date/Time: 06/19/2024 2:46 PM Performed by: Carrie Rod MD Authorized by: Lucas Newman MD Rate: ECG rate: 69 ECG rate assessment: normal Rhythm: Rhythm: sinus rhythm Ectopy: Ectopy: none QRS: QRS axis: Normal QRS intervals: Normal Conduction: Conduction: normal ST segments: ST segments: Normal T waves: T waves: normal Previous ECG: Previous ECG: Unavailable Interpretation: Interpretation: normal us Silvia Painter MD ECG ORDERABLES Final Re sult [facility] * Hepatitis panel, acute (04/11/2019 5:25 PM ASSOCIATE FACULTY) HepBsAg NONREACT NONREACTIVE [facility] Comment: [employer] using JACINTO (chemiluminescent immunoassay) technology. NONREACTIVE: IgM antibodies to Hepatitis B Surface antigen not detected. REACTIVE: IgM antibodies to Hepatitis B Surface antigen detected. Reactive results will be confirmed by neutralization testing. HBsAb qn 32.73 mIU/mL [facility] Comment: [employer] CentaurXP using JACINTO (chemiluminescent immunoassay) technology. 9.99 IU/L or less.....NONREACTIVE: IgM antibodies to Hepatitis B Surface antibody are not detected. 10.00 IU/L or greater..REACTIVE: IgM antibodies to Hepatitis B Surface antibody are detected. Hep B core IgM NONREACT NONREACTIVE [facility] Comment: [employer] CentaurXP using JACINTO (chemiluminescent immunoassay) technology. NONREACTIVE: IgM antibodies to Hepatitis B Core antigen not detected. EQUIVOCAL: IgM antibodies to Hepatitis B Core antigen may or may not be present. Obtain a new specimen and retest. REACTIVE: IgM antibodies to Hepatitis B Core antigen detected. Hep A IgM NONREACT NONREACTIVE [facility] Comment: [employer] CentaurXP using JACINTO (chemiluminescent immunoassay) technology. NONREACTIVE: IgM antibodies to Hepatitis A not detected. This does not exclude possibility of exposure to Hepatitis A or early acute infection. EQUIVOCAL:IgM antibodies to Hepatitis A may or may not be present. Suggest recollection and retest. REACTIVE: Antibodies to Hepatitis A detected. Hep C Ab NONREACT NONREACTIVE [facility] Comment: [employer] CentaurXP using JACINTO (chemiluminescent immunoassay) technology. NONREACTIVE: Antibodies to Hepatitis C not detected. This does not exclude early acute Hepatitis C infection, possibility of exposure to Hepatitis C, antibodies below detection limit, or to lack of antibody reactivity to the antigen used in this assay. EQUIVOCAL: Antibodies to Hepatitis C may or may not be present. Sample to be confirmed by real-time PCR method. REACTIVE: Antibodies to Hepatitis C detected.Sample to be confirmed by real-time PCR method. Blood specimen (specimen) 04/11/2019 5:25 PM ASSOCIATE FACULTY 04/11/2019 5:54 PM ASSOCIATE FACULTY Narrative Resulting Agency Comment CLI us Osmar STEVEN [facility] MICROBIOLOGY - GENERAL RAFAELA [place] [address], [facility] [phone] * Screening Mammogram (02/17/2014 4:46 PM ASSOCIATE FACULTY) Anatomical Region Laterality Modality Breast N/A Mammography 02/17/2014 4:46 PM ASSOCIATE FACULTY Narrative 02/20/2014 6:59 AM ASSOCIATE FACULTY FABIO JOSEPH M.D. FINAL REPORT ACC# Date Time Exam [id number] Feb 17, 2014 16:46:00 [facility] [address] Screening Mamm Bilat Technologist(s): Alecia Salter; ; EXAMINATION: Mammogram Technique: Bilateral Full-Field Digital Screening Mammogram was performed. Views obtained: bilateral craniocaudal and bilateral mediolateral oblique. Computer Aided Detection was performed with [employer]3 version 9.3. Mammogram Findings: The present examination has been compared to a prior imaging study performed at [facility] on 01/31/2013. There are scattered fibroglandular densities. There is no suspicious abnormality in either breast. IMPRESSION: Annual screening mammography is recommended. OVERALL FINAL ASSESSMENT: BI-RADS CATEGORY 1: Negative. Requested By: Dictated By: FABIO JOSEPH M.D. on Feb 20 2014 6:59A This document has been electronically signed by: FABIO JOSEPH M.D. on Feb 20 2014 6:58A Procedure Note Provider, MD Demario - 08/02/2016 FABIO JOSEPH M.D. FINAL REPORT ACC# Date Time Exam [id number] Feb 17, 2014 16:46:00 [facility] [address] Screening Mamm Bilat Technologist(s): Alecia Salter; ; EXAMINATION: Mammogram Technique: Bilateral Full-Field Digital Screening Mammogram was performed. Views obtained: bilateral craniocaudal and bilateral mediolateral oblique. Computer Aided Detection was performed with [employer] version 9.3. Mammogram Findings: The present examination has been compared to a prior imaging study performed at [facility] on 01/31/2013. There are scattered fibroglandular densities. There is no suspicious abnormality in either breast. IMPRESSION: Annual screening mammography is recommended. OVERALL FINAL ASSESSMENT: BI-RADS CATEGORY 1: Negative. Requested By: Dictated By: FABIO JOSEPH M.D. on Feb 20 2014 6:59A This document has been electronically signed by: FABIO JOSEPH M.D. on Feb 20 2014 6:58A Historical Provider MD [facility] PROCEDURES Bonnie l Result from Last 3 Months or Most Recently Relevant to Health Maintenance Insurance REPLACED BY [facility] REPLACED BY [facility] Care Teams Chemical Inspector Relationship Specialty Start Date End Date Osmar Galeano PA PCP - General Family Medicine 01/01/22
--- OUTSIDE RECORDS SUMMARY | 2024-08-12 00:37 | XMS_ITS | Clinical Summary ---
Author Organization [place] [id number] Address [address] [place] [address] Care Team Providers Care Rn Utilization Management Um Name Role Phone Osmar Galeano Primary Care Provider [phone] Allergies No known active allergies Medications fluticasone [...] 05/02/2019 Assessment & Plan (05/02/2019 4:06 PM BREAKFAST AND ROOM ATTENDANT): Discussed with patient karinet education provided S/P cholecystectomy 10/20/2016 GERD (gastroesophageal reflux disease) 6 Assessment & Plan (04/12/2021 11:21 AM BREAKFAST AND ROOM ATTENDANT): Chronic condition with acute exacerbation concern for ulcer Start Carafate 1 g Q a.c. and HS for 30 days Start Protonix 40 mg q.d. Assessment & Plan (07/28/2019 4:06 PM CDT): Well controlled on current regimen, no rx changes needed. Continue lifestyle modifications Migraine headache 07/23/2015 Encounters Date Type Department Care Team Description 06/19/2024 4:31 PM CDT - 06/19/2024 8:01 PM CDT Emergency [facility] Emergency Department [address] [place] [address] Silvia Painter MD Chronic abdominal pain (Primary Dx) Discharge Disposition: Discharge to home or self care from Last 3 Months Immunizations Immunization Administration Dates Next Due Influenza, Quadrivalent, Spl it, Preservative Free, Intramuscular 02/22/2019 MMR 08/08/2016,07/11/2016 Tdap 07/11/2016 Surgical History Surgery Date Site/Laterality Comments CHOLECYSTECTOMY HYSTERECTOMY Medical History Medical History Date Comments Hx of gastroesophageal reflux (GERD) Hx of migraines Migraines Family History Medical History Relation Name Comments No Known Problems Brother No Known Problems Daughter 1 No Known Problems Daughter 2 Heart attack Father Rinku Grissom No Known Problems Mother Heart attack Paternal Grandfather Lloyd Grissom No Known Problems Sister Relation Name Status Comments Brother Alive Daughter 1 Alive Daughter 2 Alive Father Rinku Grissom Mother Alive Paternal Grandfather Lloyd Grissom Sister Social History Tobacco Use Types Packs/Day Years [...] on file Legal Sex Female 6:19 AM BREAKFAST AND ROOM ATTENDANT Gender Identity Female 05/21/2022 9:21 AM BREAKFAST AND ROOM ATTENDANT Sexual Orientation Not on file Obstetrics History Last Filed Vital Signs Vital Sign Reading [...] 06/19/2024 2:21 PM CDT Plan of Treatment Health Maintenance Due Date Last Done Comments Colon Cancer Screening-Colonoscopy 1969 Hepatitis B Screening 11/29/1987 Regular Well Visit/Exam 18-64 11/29/1987 Pneumococcal vaccine <65 (1 of 2 - PCV) 1988 Breast Cancer Screening-Mammogram 02/17/2015 014, 01/31/2013 Depression Screening 08/12/2019 08/11/2018 Zoster Vaccine (1 of 2) 11/29/2019 Influenza Vaccine (Season Ended) 2024 02/23/20 19 DTaP/Tdap/Td Vaccine (2 - Td or Tdap) 07/11/202610/2016 Hepatitis C Screening Completed 04/11/2019 Procedures Procedure Name Priority Date/Time Associated Diagnosis [...] HEPATITIS PANEL, ACUTE Routine 0 5:25 PM BREAKFAST AND ROOM ATTENDANT Acute gastritis without hemorrhage, unspecified gastritis type Elevated alkaline phosphatase level RUQ abdominal pain SCREENING MAMMOGRAM Routine 02/17/2014 4 :46 PM BREAKFAST AND ROOM ATTENDANT from Last 3 Months or Most Recently [...] ur Yellow Yellow Clarity, ur Clear Clear [facility] Specific gravity, ur 1.031(H) 1.003 - 1.030 [facility] pH, urine 6.0 [facility] Comment: Interpretive Data U rine pH is affected by diet, medications, systemic acid-base disturbances, and renal tubular function. pH may affect urinary stone formation. For example, urine pH below 6.0 may help reduce the tendency for calcium phosphate stones and pH greater than 6.0 may reduce the tendency for uric acid stone formation. Source: No [employer] Current Interpretive Data was last revised on 2017 Protein, ur ql Trace Negative [facility] Glucose, ur ql Negative Negative [facility] Ketones, ur Negative Negative [facility] Bilirubin, ur Negative Negative [facility] Blood, ur Negative Negative [facility] Urobilinogen, ur 2.0(A) <2.0 mg/dL [facility] Nitrite, ur Negative Negative [facility] Leukocyte esterase, ur Negative Negative [facility] UA reflex comment Reflex conditions for microscopic UA not met. [facility] Urine 06/19/2024 3:53 PM CDT 06/19/2024 4:08 PM CDT Silvia Painter MD LAB URINE ORDERABLES Fin al Result [facility] Department [place] [address] * POCT hCG, urine (06/19/2024 3:51 PM CDT) HCG, ur, POC Negative Negative Lot Number [id number] QC Backgroud Clear Acceptable QC Control Line Acceptable Urine 06/19/2024 3:51 PM CDT Silvia Painter MD POINT OF CARE TEST ORDER BERTIN Final Result * eGFR (06/19/2024 3:50 PM CDT) eGFR 66 >=60 mL/min/1. 73 m2 Comment: [...] MD LAB BLOOD ORDERABLES Fin al Result [facility] Department [place] [address] * Differential, auto (06/19/2024 3:50 PM CDT) Neutrophil abs 3.3 1.5 - 6.5 K/cumm Imm gran abs 0.0 0.0 - 0.1 K/cumm [facility] Lymphocyte abs 2.2 0.8 - 3.3 K/cumm [facility] Monocyte abs 0.3 0.2 - 0.8 K/cumm [facility] Eosinophil abs 0.1 0.0 - 0.5 K/cumm [facility] Basophil abs 0.0 0.0 - 0.1 K/cumm [facility] Neutrophil pct 56.2 % [facility] Comment: Interpretive Data Percent cell count reference ranges are not reported, since discordance with absolute values may lead to misinterpretation of CBC data. Current Interpretive Data was last revised on 2017. Imm gran pct 0.3 % [facility] Comment: Interpretive Data Percent cell count reference ranges are not reported, since discordance with absolute values may lead to misinterpretation of CBC data. Current Interpretive Data was last revised on 2017. Lymphocyte pct 36.3 % [facility] Comment: Interpretive Data Percent cell count reference ranges are not reported, since discordance with absolute values may lead to misinterpretation of CBC data. Current Interpretive Data was last revised on 2017. Monocyte pct 5.2 % [facility] Comment: Interpretive Data Percent cell count reference ranges are not reported, since discordance with absolute values may lead to misinterpretation of CBC data. Current Interpretive Data was last revised on 2017. Eosinophil pct 1.5 % [facility] Comment: Interpretive Data Percent cell count reference ranges are not reported, since discordance with absolute values may lead to misinterpretation of CBC data. Current Interpretive Data was last revised on 2017. Basophil pct 0.5 % [facility] Comment: Interpretive Data Percent cell count reference ranges are not reported, since discordance with absolute values may lead to misinterpretation of CBC data. Current Interpretive Data was last revised on 2017. Blood 06/19/2024 3:50 PM CDT 06/19/2024 3:58 PM CDT us Silvia Painter MD LAB BLOOD ORDERABLES Fin al Result Performing Organization Address City/[facility] Co de Phone Number [facility] Department [place] [address] * (ABNORMAL) CBC with auto differential (06/19/2024 3:50 PM CDT) WBC 5.9 3.8 - 9.9 K/cumm Hgb 13.5 11.9 - 15.5 g/dL [facility] Hct 41.0 35.6 - 45.5 % [facility] Plt 248 150 - 400 K/cumm [facility] MPV 8.5(L) 9.1 - 12.3 fL [facility] RBC 4.70 3.90 - 5.20 M/cumm [facility] MCV 87.2 81.3 - 96.4 fL [facility] MCH 28.7 27.1 - 33.3 pg [facility] MCHC 32.9 32.3 - 35.7 g/dL [facility] RDW CV 13.2 11.1 - 14.9 % [facility] RDW SD 41.2 35.7 - 48.1 fL [facility] NRBC abs 0.00 0.00 - 0.01 K/cumm [facility] Blood Venous blood specimen / Unknown 06/19/2024 3:50 PM CDT 06/19/2024 3:58 PM CDT Silvia Painter MD LAB BLOOD ORDERABLES Fin al Result [facility] Department [place] [address] * Lipase (06/19/2024 3:50 PM CDT) Pathologist [facility] Lipase 31 10 - 99 Units/L Blood Venous blood specimen / Unknown 06/19/2024 3:50 PM CDT 06/19/2024 3:58 PM CDT Silvia Painter MD LAB BLOOD ORDERABLES Fin al Result Performing Organization Address [facility] Co de Phone Number [facility] [place] [address] * Comprehensive metabolic panel (06/19/2024 3:50 PM CDT) [facility] Sodium 142 135 - 145 mmol/L Potassium, pl 4.3 3.3 - 4.9 mmol/L [facility] Chloride 106 97 - 110 mmol/L [facility] CO2 28 22 - 32 mmol/L [facility] Anion gap 8 2 - 15 mmol/L [facility] BUN 18 6 - 25 mg/dL [facility] Creatinine 1.01 0.60 - 1.10 mg/dL [facility] Glucose 88 70 - 199 mg/dL [facility] Comment: Interpretive Data Fasting glucose >/= 126 [...] classification and Diagnosis of Diabetes Diabetes Care 2021; 46: S19-S40. Current interpretive data was last revised 2022. Calcium 9.4 8.5 - 10.3 mg/dL [facility] Bilirubin, total 0.3 0.1 - 1.2 mg/dL [facility] Protein, pl 7.4 6.5 - 8.5 g/dL [facility] Albumin 4.2 3.5 - 5.0 g/dL [facility] Alk phos 128 40 - 130 Units/L [facility] ALT 23 7 - 45 Units/L [facility] AST 22 10 - 45 Units/L [facility] Blood 06/19/2024 3:50 PM CDT 06/19/2024 3:58 PM CDT Silvia Painter MD LAB BLOOD ORDERABLES Fin al Result Performing Organization Address City/[facility] Co de Phone Number [facility] [place] [address] * ECG 12-LEAD (06/19/2024 2:46 PM CDT) Narrative [facility] - 06/19/2024 2:46 PM CDT Carrie [...] ECG: Previous ECG: Unavailable Interpretation: Interpretation: normal Silvia Painter MD ECG ORDERABLES Final Re sult Performing Organization Address [facility] Co de Phone Number [facility] * Hepatitis panel, acute (04/11/2019 5:25 PM BREAKFAST AND ROOM ATTENDANT) HepBsAg NONREACT NONREACTIVE [facility] Comment: Siemens NeuroTronikaurXP using JACINTO (chemiluminescent immunoassay) technology. NONREACTIVE: IgM antibodies to Hepatitis B Surface antigen not detected. REACTIVE: IgM antibodies to Hepatitis B Surface antigen detected. Reactive results will be confirmed by neutralization testing. HBsAb qn 32.73 mIU/mL [facility] Comment: Siemens CentaurXP using JACINTO (chemiluminescent immunoassay) technology. 9.99 IU/L or less.....NONREACTIVE: IgM antibodies to Hepatitis B Surface antibody are not detected. 10.00 IU/L or greater..REACTIVE: IgM antibodies to Hepatitis B Surface antibody are detected. Hep B core IgM NONREACT NONREACTIVE [facility] Comment: Siemens CentaurXP using JACINTO (chemiluminescent immunoassay) technology. NONREACTIVE: IgM antibodies to Hepatitis B Core antigen not detected. EQUIVOCAL: IgM antibodies to Hepatitis B Core antigen may or may not be present. Obtain a new specimen and retest. REACTIVE: IgM antibodies to Hepatitis B Core antigen detected. Hep A IgM NONREACT NONREACTIVE [facility] Comment: Siemens CentaurXP using JACINTO (chemiluminescent immunoassay) technology. NONREACTIVE: IgM antibodies to Hepatitis A not detected. This does not exclude possibility of exposure to Hepatitis A or early acute infection. EQUIVOCAL:IgM antibodies to Hepatitis A may or may not be present. Suggest recollection and retest. REACTIVE: Antibodies to Hepatitis A detected. Hep C Ab NONREACT NONREACTIVE [facility] Comment: Siemens CentaurXP using JACINTO (chemiluminescent immunoassay) [...] method. Blood specimen (specimen) 04/11/2019 5:25 PM BREAKFAST AND ROOM ATTENDANT 04/11/2019 5:54 PM BREAKFAST AND ROOM ATTENDANT Narrative Resulting Agency Comment CLI us Osmar [facility] MICROBIOLOGY - GENERAL RAFAELA ARIZMENDI Final Result [facility] [address] [place] [address], [facility] [phone] * Screening Mammogram (02/17/2014 4:46 PM BREAKFAST AND ROOM ATTENDANT) Anatomical Region Laterality Modality Breast N/A Mammography 02/17/2014 4:46 PM BREAKFAST AND ROOM ATTENDANT Narrative 02/20/2014 6:59 AM BREAKFAST AND ROOM ATTENDANT FABIO JOSEPH M.D. FINAL REPORT ACC# Date Time Exam [id number] Feb 17, 2014 16:46:00 [facility] [id number] Screening Mamm Bilat Technologist(s): Alecia Salter; ; EXAMINATION: Mammogram Technique: Bilateral Full-Field Digital Screening Mammogram was performed. Views obtained: bilateral craniocaudal and bilateral mediolateral oblique. Computer Aided Detection was performed with Libertad[employer] 1.3 version 9.3. Mammogram Findings: The present examination has been compared to a prior imaging study performed at [facility] on 01/31/2013. There are scattered fibroglandular densities. [...] M.D. FINAL REPORT ACC# Date Time Exam [id number] Feb 17, 2014 16:46:00 [facility] [id number] Screening Mamm Bilat Technologist(s): Alecia Salter; ; EXAMINATION: Mammogram Technique: Bilateral Full-Field Digital Screening Mammogram was performed. Views obtained: bilateral craniocaudal and bilateral mediolateral oblique. Computer Aided Detection was performed with [employer] 1.3 version 9.3. Mammogram Findings: The present examination has been compared to a prior imaging study performed at [facility] on 01/31/2013. There are scattered fibroglandular densities. [...] Most Recently Relevant to Health Maintenance Insurance [place] Care Teams Rn Utilization Management Um Relationship Specialty Start Date End Date Osmar Galeano PA PCP - General Family Medicine 01/01/22
--- OUTSIDE RECORDS SUMMARY | 2024-08-12 00:37 | XMS_ITS | Clinical Summary ---
Author Organization [facility] Address [address] [place] [address] Care Team Providers Care Software Engineer Web Applications Name Role Phone Osmin Crockett MD Primary Care Provider [phone] Source Comments [facility],non-owned Affiliates and Associated Physician Practices is amultiple site organization consisting of ambulatory clinics and hospital sitesin [place], [place], [place] and [place]. This disclosure is being madepursuant to the Care Everywhere program and may not contain all information available regarding this patient. Last updated 17.[facility] Allergies No known active allergies Medications * Be aware that medications may not be up to date on this document. Alwaysverify current medications with the patient. multivitamin daily tablet Take 1 (one) tablet by mouth daily with food Active naproxen (Naprosyn) 500 MG tablet Take 1 (one) tablet by mouth 2 times daily 05/10/2022 Active Active Problems No known active problems Immunizations Immunization Administration Dates Next Due MMR 08/08/2016,07/11/2016 Social History Tobacco Use Types Packs/Day Years Used Date Smoking Tobacco: Never Smokeless Tobacco: Never Tobacco Cessation:Counseling Given: Not Answered Comments Unknown Sex and Gender Information Value Date Recorded Sex Assigned at Not on file Legal Sex Female 8:43 AM CDT Gender Identity Not on file Sexual Orientation Not on file Last Filed Vital Signs Vital Sign Reading Time Taken Comments Blood Pressure 110/70 07/22/2022 2:16 PM CDT Pulse 72 07/22/2022 2:16 PM CDT Temperature 36.8 C (98.2 F) 07/22/2022 2:16 PM CDT Respiratory Rate - - Oxygen Saturation 100% 07/22/2022 2:16 PM CDT Inhaled Oxygen Concentration - - Weight 99.8 kg (220 lb) 07/22/2022 2:16 PM CDT Height 167.6 cm (5' 6 ) 07/22/2022 2:16 PM CDT Body Mass Index 35.51 07/22/2022 2:16 PM CDT Plan of Treatment Health Maintenance Due Date Last Done Comments COLOGUARD (AGES 45-75) - COL ON CA SCREENING 1969 COLON MONITORING 1969 COLONOSCOPY - COLON CA SCREENING 1969 CT COLONOGRAPHY - COLON CA SCREENING 1969 Colorectal Cancer Screening 1969 FIT - COLON CA SCREENING 1969 FLEX SIG - COLON CA SCREENING 1969 LIPID TESTING 1969 MAMMOGRAM 1969 PAP SMEAR 1969 HIV SCREENING 1984 HEPATITIS C SCREENING 11/24/1987 DTAP/TDAP/TD VACCINES (1 - Tdap) 1988 HEPATITIS B VACCINE (1 of 3 - 19+ 3-dose series) 1988 PNEUMOCOCCAL VACCINE 50+ (1 of 1 - PCV) 11/29/2019 ZOSTER VACCINE (1 of 2) 11/29/2019 SCREENING FOR DIABETES 04/29/2022 COVID-19 VACCINE (1 - 2023-2 5 season) 2023 DEPRESSION SCREENING 04/06/2024 INFLUENZA VACCINE (Season Ended) 2024 02/23/20 19 HIB VACCINE Aged Out No longer eligi ble based on patient's age to complete this topic HPV VACCINE Aged Out No longer eligi ble based on patient's age to complete this topic MENINGOCOCCAL (Group B) VACC INE SHARED DECISION-MAKING Aged Out No longer eligibl e based on patient's age to complete this topic MENINGOCOCCAL GROUPS A/C/Y/W VACCINE Aged Out No longer eligible b ased on patient's age to complete this topic Insurance ANTHEM Care Teams Software Engineer Web Applications Relationship Specialty Start Date End Date Osmin Crockett MD [address] [place] [address] PCP - General Family Medicine 07/11/16
--- OUTSIDE RECORDS SUMMARY | 2024-08-12 00:37 | XMS_ITS | Clinical Summary ---
Author Organization [facility] Address [address] [place] [address] Care Team Providers Care Combatant Swimmer Name Role Phone Osmar Galeano PA-C Primary Care Provider Allergies No known active allergies Medications hydrocodone-acet aminophen 5-325 MG tablet Take 1 tablet by mouth every 6 (six) hours as needed for Pain. 10 tablet 12/07/2018 Active dicyclomine (BENTYL) 20 MG tablet Take 1 tablet (20 mg total) by mouth every 6 (six) hours as needed. 30 tablet 02/23/2024 Active Social History Tobacco Use Types Packs/Day Years Used Date Smoking Tobacco: Never Smokeless Tobacco: Never Alcohol Use Standard Drinks/Week Comments No 0 (1 standard drink = 0.6 oz pur e alcohol) AUDIT-C Answer Date Recorded Frequency of Alcohol Consumption Never 12/07/2018 Average Number of Drinks Not on file 019 Frequency of Binge Drinking Not on file 06/2018 Comments No Sex and Gender Information Value Date Recorded Sex Assigned at Not on file Legal Sex Female 8:19 PM CDT Gender Identity Not on file Sexual Orientation Not on file Last Filed Vital Signs Vital Sign Reading Time Taken Comments Blood Pressure 121/83 02/23/2024 10:15 PM CARPET RENOVATOR Pulse 68 02/23/2024 10:15 PM CARPET RENOVATOR Temperature 36.3 C (97.3 F) 02/23/2024 7:05 PM CARPET RENOVATOR Respiratory Rate 16 02/23/2024 10:15 PM CARPET RENOVATOR Oxygen Saturation 97% 02/23/2024 10:15 PM CARPET RENOVATOR Inhaled Oxygen Concentration - - Weight 99.1 kg (218 lb 7.6 oz) 02/23/2024 7:05 P M CARPET RENOVATOR Height 167.6 cm (5' 6 ) 02/23/2024 7:05 PM CARPET RENOVATOR Body Mass Index 35.26 02/23/2024 7:05 PM CARPET RENOVATOR Plan of Treatment Health Maintenance Due Date Last Done Comments Colorectal Cancer Screening Colonoscopy (10 Years) 1969 Annual Physical 1972 Hepatitis C 11/29/1987 Hepatitis B Vaccines (1 of 3 - 19+ 3-dose series) 1988 Mammogram Screening 2009 Pneumococcal Vaccine: 50+ Years (1 of 1 - PCV) 11/29/2019 Zoster Vaccines (1 of 2) 11/29/2019 COVID-19 Vaccine (1 - 2023-2 5 season) 2023 DTaP, Tdap and Td Vaccines ( 2 - Td or Tdap) 07/11/2026 07/11/2016, 1969 Meningococcal B Vaccine Aged Out No l onger eligible based on patient's age to complete this topic Meningococcal Vaccine Aged Out No andrade zoya eligible based on patient's age to complete this topic RSV Immunizations Under 20 Months Aged Out No longer eligible b ased on patient's age to complete this topic Insurance [facility] Care Teams Combatant Swimmer Relationship Specialty Start Date End Date Osmar Galeano PA-C [facility] [address] [place] [address] PCP - General PHYSICIAN SPECIAL EVENTS COORDINATOR 04/05/22
[2024-08-12 08:54] VITALS: BP 120/89; PULSE 73; RESP 20; TEMP 36.3; O2SAT 100
--- NOTE | 2024-08-12 09:05 | P.PNAN_ITS ---
Anes - Initial Pre Proc Eval Procedure: Operation Date: 08/12/24 10:00 Proposed Procedures p Esophagogastroduodenoscopy & Colonoscopy - Surinder Hawkins MD Date/Time: 08/12/24 09:05 Surgeon: Surinder Hawkins MD Pre Op Diagnosis: Abnormal findings on diagnostic imaging Patient Data Age: 53 Gender: F Height: 1.7 m Weight: 95.6 kg Last Vital Signs Temp 97.3 F L 08/12/24 08:54 Pulse 73 08/12/24 08:54 Resp 20 08/12/24 08:54 BP 120/89 08/12/24 08:54 Pulse Ox 100 08/12/24 08:54 O2 Del Method Room Air 08/12/24 08:54 Allergies Allergy/AdvReac Type Severity Reaction Status Date / Time Milk Containing Products Allergy Unknown Diarrhea Verified 08/12/24 08:53 (Dairy) Home Medications ?Medication ?Instructions ?Recorded ?Confirmed ?Type dicyclomine 10 mg capsule 10 mg PO QID PRN abdominal pain 06/30/24 08/03/24 Rx #120 caps omeprazole 40 mg capsule,delayed 40 mg PO BID #60 caps 06/30/24 08/12/24 Rx release sucralfate 1 gram tablet (Carafate) 1 g PO ACHS #120 tabs 06/30/24 08/03/24 Rx Patient hx anesthesia problems: none Family hx anesthesia problems: none Results Review: All pre-operative results and documents have been reviewed as part of the pre- operative evaluation. [facility] Past Medical History Medical History Colon cancer screening Obesity Belching Abdominal distension Early satiety Migraine Epigastric pain Surgical History Surgical History H/O: hysterectomy Hx of tonsillectomy Hx of cholecystectomy Social History Social History Smoking status: Never smoker Alcohol intake: never Substance use: never Substance use type: does not use Living arrangements: with family Spiritual care concerns: No Anes - Eval Final PreProcedure Day of Procedure 08/12/24 09:05 Patient weight: obese Heart: regular rate and rhythm Lungs: clear to auscultation Airway: Mallampati scale class II Neurological: alert and oriented Last oral intake: >/= 8 hours ASA classification: II Emergent: no Anesthetic plan: proceed Anesthesia type and monitoring: general GIVS and standard monitoring Results Review: All pre-operative results and documents have been reviewed as part of the pre- operative evaluation. Informed Consent: The patient's anesthetic plan and its attendant risks and benefits were discussed with the patient/family/POA. Questions were solicited and answers provided to the satisfaction of the patient/family/POA.
[2024-08-12] MEDS: LACTATED RINGERS 1,000 ML 150 ML IV CONT (09:08)
--- NOTE | 2024-08-12 09:23 | P.HP_ITS ---
History of Present Illness History of Present Illness Consent: Risks, benefits, and alternatives have been discussed and questions answered. Patient agrees to proceed with procedure. Chief complaint: Abnormal findings on diagnostic imaging Narrative: Alexandra Henry is a 53 year old female with abdominal bloating and early satiety then went to [facility] on 06/19/2024 for epigastric and right-sided abdominal pain. Workup noted distal esophageal wall thickening consistent with esophagitis. Also intermittent rt abdominal pain. Last egd 2019 and colonoscopy 2021, serology for celiac negative Review of Systems Review of Systems: All systems reviewed & are unremarkable except as noted in HPI and below PMFSH Past Medical History Medical History Colon cancer screening Obesity Belching Abdominal distension Early satiety Migraine Epigastric pain Surgical History Surgical History H/O: hysterectomy Hx of tonsillectomy Hx of cholecystectomy Social History Social History Smoking status: Never smoker Alcohol intake: never Substance use: never Substance use type: does not use Living arrangements: with family Spiritual care concerns: No Meds Home Medications and Allergies Home Medications ?Medication ?Instructions ?Recorded ?Confirmed ?Type dicyclomine 10 mg capsule 10 mg PO QID PRN abdominal pain 06/30/24 08/03/24 Rx #120 caps omeprazole 40 mg capsule,delayed 40 mg PO BID #60 caps 06/30/24 08/12/24 Rx release sucralfate 1 gram tablet (Carafate) 1 g PO ACHS #120 tabs 06/30/24 08/03/24 Rx Allergies Allergy/AdvReac Type Severity Reaction Status Date / Time Milk Containing Products Allergy Unknown Diarrhea Verified 08/12/24 08:53 (Dairy) Vital Signs Vital Signs - 24 hr 08/12/24 08:54 Temperature 97.3 F L Pulse Rate 73 Respiratory Rate 20 Blood Pressure 120/89 Pulse Oximetry 100 Oxygen Delivery Room Air Exam Const: General: comfortable and no acute distress HENMT: Face/Nose/Sinus: Normal nares present Eyes: General: appearance normal, both eyes and all related structures Neck: Neck: no JVD Resp: Auscultation: clear to auscultation bilaterally Cardio: Rate: regular rate Rhythm: regular rhythm GI: Inspection: non-distended GI Palp: Yes Soft to palpation Skin: General skin exam: normal color Neuro: General: gait normal Speech: normal speech Extrem: General: normal to inspection Psych: Mental Status: mental status grossly normal Assessment and Plan Assessment and plan (1) Bloating: Code(s): R14.0 - Abdominal distension (gaseous) Status: Acute Assessment and Plan: egd with bx (2) Abdominal distension: Code(s): R14.0 - Abdominal distension (gaseous) Status: Acute (3) Right-sided abdominal pain of unknown cause: Code(s): R10.9 - Unspecified abdominal pain Status: Acute Assessment and Plan: colonoscopy
[2024-08-12] MEDS: BENZOCAINE (*SP) 60 ML SPRAY CAN (HURRICAINE) 1 SPRAY MUCOUS MEM (09:30)
--- NOTE | 2024-08-12 09:37 | SUR.OPER ---
EGD: [id number] COLON: Start 935
[2024-08-12 09:46] VITALS: BP 105/67; PULSE 76; RESP 15; O2SAT 98
[2024-08-12 09:56] VITALS: BP 94/60; PULSE 68; RESP 14; O2SAT 98
[2024-08-12 10:06] VITALS: BP 132/83; PULSE 60; RESP 22; O2SAT 100
[2024-08-12 10:37] LABS: HPYLORIRESULT Negative (Negative)
== END 2024-08-12 10:21 | disposition home or self-care (01) ==
PROVIDERS: PCP Family Medicine; Referring Provider Nurse Practitioner; Visit Provider Internal Medicine Gastroenterology
PROC: 0DJ08ZZ Inspection of Upper Intestinal Tract, Via Natural or Artificial Opening Endoscopic (ICD-10-PCS; CPT 45378; principal; 2024-08-12 10:00)
DX: R93.3 Abnormal findings on diagnostic imaging of other parts of digestive tract (principal); K64.8 Other hemorrhoids; K57.30 Diverticulosis of large intestine without perforation or abscess without bleeding; K44.9 Diaphragmatic hernia without obstruction or gangrene; K29.70 Gastritis, unspecified, without bleeding; E66.9 Obesity, unspecified; Z68.33 Body mass index [BMI] 33.0-33.9, adult; Z98.890 Other specified postprocedural states; Z90.49 Acquired absence of other specified parts of digestive tract
CPT/HCPCS: 43239; 45378; 87081; 88305; J2003; J2704; J7120

== ENCOUNTER 2025-01-03 08:35 | Outpatient (CLI) | payer BC, SELFPAY ==
--- NOTE | ~2025-01-03 | US_ITS ---
US right upper quadrant INDICATION: Elevated liver enzymes PROCEDURE: Realtime right upper abdominal ultrasound. COMPARISON: No prior studies for comparison. FINDINGS: The pancreas is normal without focal mass or pancreatic ductal dilation. Liver echotexture is increased, consistent with fatty infiltration. There is normal directional flow in the portal vein. Gallbladder is surgically absent. Common bile duct measures 5 mm. IMPRESSION: 1: Fatty infiltration of the liver. Reviewed, dictated and finalized at location B.
--- OUTSIDE RECORDS SUMMARY | 2025-01-03 08:48 | XMS_ITS | Encounter Summary ---
Author Organization [facility] Facility Care Team Providers Care Manager Machine Name Role Phone Osmin Crockett MD Primary Care Provider Osmar Galeano Primary Care Provider [phone] Encounter Details Date Type Department Care Team (Latest Contact Info) Description 09/12/2016 Orders Only [facility] CLINCONV ProviderDemario MD [address] [place] [id number] Social History Tobacco Use Types Packs/Day Years Used Date Smoking Tobacco: Never Assessed Comments Unknown Sex and Gender Information Value Date Recorded Sex Assigned at Not on file Legal Sex Female 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
--- OUTSIDE RECORDS SUMMARY | 2025-01-03 08:48 | XMS_ITS | Clinical Summary ---
Author Organization [facility] Address [address] [place] [address] Care Team Providers Care Surveying Technician Name Role Phone Osmin Crockett MD Primary Care Provider [phone] Source Comments [facility],non-owned Affiliates and Associated Physician Practices is amultiple site organization consisting of ambulatory clinics and hospital sitesin [place], [place], [place] and [place]. This disclosure is being madepursuant to the Care Everywhere program and may not contain all information available regarding this patient. Last updated 17.[facility] Allergies No known active allergies Medications * [...] 2:16 PM CDT Height 167.6 cm (5' 6) 07/22/2022 2:16 PM CDT Body Mass Index [...] SCREENING 1969 LIPID TESTING 1969 MAMMOGRAM 1969 HIV SCREENING 1984 HEPATITIS C SCREENING 11/24/1987 DTAP/TDAP/TD VACCINES (1 - Tdap) 1988 HEPATITIS B VACCINE (1 of 3 - 19+ 3-dose series) 1988 PAP SMEAR 1990 PNEUMOCOCCAL VACCINE 50+ (1 of 1 - PCV) 11/29/2019 ZOSTER VACCINE (1 of 2) 11/29/2019 SCREENING FOR DIABETES 04/29/2022 DEPRESSION SCREENING 04/06/2024 COVID-19 VACCINE (1 - 2023-2 5 season) 2024 INFLUENZA VACCINE (#1) 2024 02/22/2019 HIB VACCINE Aged Out No longer eligi [...] patient's age to complete this topic Insurance [id number] [place] [id number] [facility] SELF PAY NO INSURANCE Member Subscriber Plan / Payer (Ef fective for All Dates) Name:Alexandra Henry Member ID:Not on file Relation to Subscriber:Not on file Name:CARLALEXANDRA A Subscriber ID:Not on file (Home) Address: [address] [place] [address] Payer ID:Not on file Group ID:Not on file Type:Self Pay Address: [place], [place] Care Teams Surveying Technician Relationship Specialty Start Date End Date Osmin Crockett MD [address] [place] [address] [place] [id number] PCP - General Family Medicine 07/11/16
--- OUTSIDE RECORDS SUMMARY | 2025-01-03 08:48 | XMS_ITS | Encounter Summary ---
Author Organization [facility] Facility Care Team Providers Care Node Js Developer Name Role Phone Osmin Crockett MD Primary Care Provider [phone] Osmar Galeano Primary Care Provider [phone] Encounter Details Date Type Department Care Team (Latest Contact Info) Description 08/21/2016 Orders Only [facility] CLINCONV ProviderDemario MD [address] [place] [address] Social History Tobacco Use Types Packs/Day Years Used Date Smoking Tobacco: Never Assessed Comments Unknown Sex and Gender Information Value Date Recorded Sex Assigned at Not on file Legal Sex Female 6:19 AM POT LINER Gender Identity Female 05/21/2022 9:21 AM POT LINER Sexual Orientation Not on file documented as [...] on filedocumented in this encounter Care Teams Node Js Developer Relationship Specialty Start Date End Date Osmin Crockett MD PCP - General Family Medicine 08/11/18 12/31/21 Osmar Galeano PA PCP - General Family Medicine 01/01/22 documented as of this encounter
--- OUTSIDE RECORDS SUMMARY | 2025-01-03 08:48 | XMS_ITS | Encounter Summary ---
Author Organization [facility] Facility Care Team Providers Care Biological Plant Operator Name Role Phone Osmin Crockett MD Primary Care Provider [phone] Osmar Galeano Primary Care Provider [phone] Encounter Details Date Type Department Care Team (Latest Contact Info) Description 08/19/2016 Orders Only [facility] CLINCONV ProviderDemario MD [address] [place] [address] Social History Tobacco Use Types Packs/Day Years Used Date Smoking Tobacco: Never Assessed Comments Unknown Sex and Gender Information Value Date Recorded Sex Assigned at Not on file Legal Sex Female 6: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
--- OUTSIDE RECORDS SUMMARY | 2025-01-03 08:48 | XMS_ITS | Clinical Summary ---
Author Organization [place] [id number] [facility] Address [address] [place] [address] Care Team Providers Care Consulting Project Director Name Role Phone Osmar Galeano Primary Care Provider [phone] Allergies No known active allergies Medications fluticasone [...] 05/02/2019 Assessment & Plan (05/02/2019 4:06 PM BOARD OPERATOR): Discussed with patient karinet education provided S/P cholecystectomy 10/20/2016 GERD (gastroesophageal reflux disease) 6 Assessment & Plan (04/12/2021 11:21 AM BOARD OPERATOR): Chronic condition with acute exacerbation concern for [...] on file Legal Sex Female 6:19 AM BOARD OPERATOR Gender Identity Female 05/21/2022 9:21 AM BOARD OPERATOR Sexual Orientation Not on file Obstetrics History [...] 2:21 PM CDT Height 167.6 cm (5' 6) 06/19/2024 2:21 PM CDT Body Mass Index 33.89 06/19/2024 2:21 PM CDT Plan of Treatment Health Maintenance Due Date Last Done Comments Colon Cancer Screening-Colonoscopy 1969 Hepatitis B Screening 11/29/1987 Regular Well Visit/Exam 18-64 11/29/1987 Pneumococcal vaccine <65 (1 of 2 - PCV) 1988 Breast Cancer Screening-Mammogram 02/17/2015 014, 01/31/2013 Depression Screening 08/12/2019 08/11/2018 Zoster Vaccine (1 of 2) 11/29/2019 Influenza Vaccine (#1) 2024 02/22/2019 DTaP/Tdap/Td Vaccine (2 - Td or Tdap) 07/11/202610/2016 Hepatitis C Screening Completed 04/11/2019 Procedures Procedure Name Priority Date/Time Associated Diagnosis Comments HEPATITIS PANEL, ACUTE Routine 04/11/2019 5:25 PM BOARD OPERATOR Acute gastritis without hemorrhage, unspecified gastritis type Elevated alkaline phosphatase level RUQ abdominal pain SCREENING MAMMOGRAM Routine 02/17/2014 4 :46 PM BOARD OPERATOR from Last 3 Months or Most Recently Relevant to Health Maintenance Results * Hepatitis panel, acute (04/11/2019 5:25 PM BOARD OPERATOR) HepBsAg NONREACT NONREACTIVE [facility] Comment: Siemens CentaurXP using JACINTO (chemiluminescent immunoassay) technology. NONREACTIVE: IgM antibodies to Hepatitis B Surface antigen not detected. REACTIVE: IgM antibodies to Hepatitis B Surface antigen detected. Reactive results will be confirmed by neutralization testing. HBsAb qn 32.73 mIU/mL [facility] Comment: Siemens CentaurXP using JACINTO (chemiluminescent immunoassay) technology. 9.99 IU/L or less.....NONREACTIVE: IgM antibodies to Hepatitis B Surface antibody are not detected. 10.00 IU/L or greater..REACTIVE: IgM antibodies to Hepatitis B Surface antibody are detected. Hep B core IgM NONREACT NONREACTIVE [facility] Comment: Siemens CentaurXP using JACINTO (chemiluminescent immunoassay) technology. NONREACTIVE: IgM antibodies to Hepatitis B Core antigen not detected. EQUIVOCAL: IgM antibodies to Hepatitis B Core antigen may or may not be present. Obtain a new specimen and retest. REACTIVE: IgM antibodies to Hepatitis B Core antigen detected. Hep A IgM NONREACT NONREACTIVE [facility] Comment: Siemens CentaurXP using JACINTO (chemiluminescent immunoassay) technology. NONREACTIVE: IgM antibodies to Hepatitis A not detected. This does not exclude possibility of exposure to Hepatitis A or early acute infection. EQUIVOCAL:IgM antibodies to Hepatitis A may or may not be present. Suggest recollection and retest. REACTIVE: Antibodies to Hepatitis A detected. Hep C Ab NONREACT NONREACTIVE [facility] Comment: Siemens CentaurXP using JACINTO (chemiluminescent [...] method. Blood specimen (specimen) 04/11/2019 5:25 PM BOARD OPERATOR 04/11/2019 5:54 PM BOARD OPERATOR Narrative Resulting Agency Comment CLI us Osmar [facility] - GENERAL RAFAELA ARIZMENDI Final Result [facility] [address] [phone] * Screening Mammogram (02/17/2014 4:46 PM BOARD OPERATOR) Anatomical Region Laterality Modality Breast N/A Mammography 02/17/2014 4:46 PM BOARD OPERATOR Narrative 02/20/2014 6:59 AM BOARD OPERATOR FABIO JOSEPH M.D. FINAL REPORT ACC# Date Time Exam [id number] Feb 17, 2014 16:46:00 [facility] [id number] Screening Mamm Bilat Technologist(s): Alecia [place]; ; EXAMINATION: Mammogram Technique: Bilateral Full-Field Digital Screening Mammogram was performed. Views obtained: bilateral craniocaudal and bilateral mediolateral oblique. Computer Aided Detection was performed with EqsQuest 1.3 version 9.3. Mammogram Findings: The present examination has been compared to a prior imaging study performed at [facility] on 01/31/2013. There are scattered [...] M.D. FINAL REPORT ACC# Date Time Exam [id number] Feb 17, 2014 16:46:00 [facility] [id number] Screening Mamm Bilat Technologist(s): Alecia [place]ter; ; EXAMINATION: Mammogram Technique: Bilateral Full-Field Digital Screening Mammogram was performed. Views obtained: bilateral craniocaudal and bilateral mediolateral oblique. Computer Aided Detection was performed with EqsQuest 1.3 version 9.3. Mammogram Findings: The present examination has been compared to a prior imaging study performed at [facility] on 01/31/2013. There are scattered [...] Most Recently Relevant to Health Maintenance Insurance [place] Member Subscriber Plan / Payer ( fective 2022-Present) Name:Alexandra Henry A Relation to Subscriber:Spouse Name:WILFREDO HENRY Date of :1969 (Home) Address: [address] [address] Payer ID:[id number] (NAIC) Type: OTHER Address: [place] [phone] Care Teams Consulting Project Director Relationship Specialty Start Date End Date Osmar Galeano PA PCP - General Family Medicine 01/01/22
--- OUTSIDE RECORDS SUMMARY | 2025-01-03 08:48 | XMS_ITS | Clinical Summary ---
Author Organization [facility] Address [address] [place] [address] Care Team Providers Care Mineral Surveyor Name Role Phone Unavailable Primary Care Provider [...] Cervical Cancer Screening (CCS) 11/29/1999 HPV/Cotest 11/29/1999 Cologuard 2014 Colonoscopy 2014 Colorectal Cancer Screening 2014 Immunochemical Fecal Occult Blood 2014 Pneumococcal Immunization (5 0+ years) (1 of 1 - PCV) 11/29/2019 Zoster Immunization (1 of 2) 11/29/2019 Influenza Immunization (#1) 2024 02/22/2019 SARS-COV-2 Immunization ( - season) 2024 Respiratory Syncytial Virus (RSV) Immunization (Adult) (1 - 1-dose 75+ series) 2044 DTaP/Tdap/Td Immunization Discontinued 07/11/2016 TdaP Immunization Completed 07/11/2016 Human Papillomavirus (HPV) Immunization Aged Out No longer eligible b ased on patient's age to complete this topic Meningococcal Immunization (ACWY) Aged Out No longer eligible based on patient's age to complete this topic Rotavirus Immunization Aged Out No lo nger eligible based on patient's age to complete this topic
== END 2025-01-03 08:36 | disposition home or self-care (01) ==
PROVIDERS: PCP Family Medicine; Visit Provider Registered Nurse
DX: R79.89 Other specified abnormal findings of blood chemistry (principal); K76.9 Liver disease, unspecified
CPT/HCPCS: 76705

== ENCOUNTER 2025-01-11 15:36 | Outpatient (CLI) | payer BC, SELFPAY ==
--- NOTE | ~2025-01-11 | CT_ITS ---
EXAMINATION: CT abdomen pelvis w con DATE: 01/11/2025 15:57 INDICATION: Right abdominal pain. TECHNIQUE: Computed tomography (CT) of the abdomen and pelvis was performed with 100 mL Omnipaque 350 intravenous contrast. Automated exposure control and iterative reconstruction technique were employed. The dose-length product was 1050.32 mGy-cm. COMPARISON: Ultrasound abdomen 01/03/2025 FINDINGS: The visualized portions of the lung bases demonstrate mild atelectasis. No pleural effusion. The heart size is normal. No pericardial effusion. The liver and spleen are normal. There are changes of cholecystectomy. The pancreas, adrenal glands, and kidneys are normal. There are no dilated loops of bowel. The appendix is normal. There is an umbilical hernia containing fat. There are no pathologically enlarged lymph nodes. There is no free intraperitoneal fluid. There is severe thoracic and lumbar spondylosis. IMPRESSION: 1. Umbilical hernia containing fat. Reviewed, dictated and finalized at location E.
== END 2025-01-11 15:37 | disposition home or self-care (01) ==
LOC: CHSIMG 15:38
PROVIDERS: PCP Family Medicine; Visit Provider Registered Nurse
DX: R10.9 Unspecified abdominal pain (principal); K42.9 Umbilical hernia without obstruction or gangrene
CPT/HCPCS: 74177; Q9967